=== PATIENT | female | born 1995 | race Caucasian/White ===

== ENCOUNTER 2018-10-14 01:53 | Inpatient (IN) ==
[2018-10-14] MEDS ORDERED: 0.9 % Sodium Chloride 1,000 ML IVC ONE (02:15)
--- NOTE | 2018-10-14 02:20 | Emergency Department Note ---
Disposition Clinical Impression: Finger infection Disposition: Admitted As Inpatient Condition: Good Time of Disposition: 04:08 Extremity Problem HPI - General Chief complaint: ED Extremity Problem,Nontraumatic Stated complaint: infected finger Time Seen by Provider: 10/14/18 02:10 Source: patient Limitations: no limitations Nursing Notes Reviewed: Yes Vital Signs Reviewed: Yes - History of Present Illness HPI Narrative: 23-year-old right-hand dominant female presents with an apparent infected right little finger. She scribes one week ago he had started on his uatsdin other than that she denies any injury. She describes as progressively swelling and worsening. She denies any previous skin infections, injury trauma fevers chills. Pain Scale: 7 - Related Data Allergies Allergy/AdvReac Type Severity Reaction Status Date / Time vancomycin AdvReac Redness of Verified 10/14/18 18:05 Skin All systems ED: reviewed and negative except as stated. Review of Systems: As Per HPI Constitutional: Denies: fever, chills ENT ED: Denies: throat pain Cardiovascular: Denies: chest pain Respiratory: Denies: cough Gastrointestinal: Denies: abdominal pain, nausea, vomiting Musculoskeletal: Reports: as per HPI Integumentary: Reports: as per HPI Neurological: Denies: headache Psychiatric: Reports: anxiety. Denies: depression, suicidal thoughts Hematological/Lymphatic: Denies: lymphadenopathy Allergic/Immunologic: Denies: facial swelling Past Medical History - Past Medical History Medical history: Reports: no medical history - Social History Smoking Status: Never smoker Alcohol use: Reports: none Drug use: Reports: none Physical Exam - General Limitations: no limitations General appearance: alert, in no apparent distress, anxious - Head Head exam: atraumatic, normocephalic - Eye Eye exam: Present: EOMI - ENT ENT exam: mucous membranes moist - Neck Neck exam: Present: full ROM - Chest Chest inspection: Present: symmetric chest wall rise - Respiratory Respiratory exam: Absent: respiratory distress - Cardiovascular Cardiovascular exam: Present: normal rhythm, tachycardia - Expanded Upper Extremity Exam Forearm/Wrist exam: Present: normal inspection, full ROM. Absent: tenderness Hand exam: Present: tenderness (right middle finger), swelling (right middle finger). Absent: full ROM (right middle finger: mild flexion, with limited extension) Vascular exam: Normal: capillary refill - Back Exam Back exam: Present: full ROM. Absent: CVA tenderness (R), CVA tenderness (L) - Neurological Exam Neurological exam: Present: alert - Psychiatric Psychiatric exam: Present: normal affect, normal mood - Skin Skin exam: Present: warm, dry, intact, normal color. Absent: rash, cyanosis, diaphoresis Course Course Narrative: 23-year-old right-hand dominant female presents with an apparent infected right little finger. She scribes one week ago he had started on his uatsdin other than that she denies any injury. She describes as progressively swelling and worsening. She denies any previous skin infections, injury trauma fevers chills. Patient arrives via squad. On my examination exam room she is very anxious and tearful. Nursing is at bedside attempting to draw blood. Her right index f golden does appear to be infected, there is some granulation tissue in the distal end, but noted circumferential swelling and erythema with apparent decreased range of motion of right middle finger. On visual inspection concerning for tenosynovitis. Patient denies any previous skin infections IV drug use. She does appear tachycardic I suspect due to infectious cause and anxiety. She denies any chest pain shortness of breath. We will proceed with imaging, abx, workup. I anticipate admission. - Reevaluation(s) Reevaluation #1: Patient was discussed with hospitalist Dr. Foster who agreed to accept patient. Pt was seen by ortho in ED and was taken to surgery from the ED. Time: 04:05 - Consultations Consultation #1: Patient was discussed with on-call orthopedic provider Dr. Pryor, who also had face time with patient and had reviewed radiographs on the portable x-ray machine. He advises for admission to the hospitalist, and we will plan for surgery tomorrow. Time: 03:00 Vital Signs Temperature 98.9 F 10/14/18 01:59 Pulse Rate 137 10/14/18 01:59 Respiratory Rate 20 10/14/18 01:59 Blood Pressure 139/90 10/14/18 01:59 O2 Sat by Pulse Oximetry 99 10/14/18 01:59 Temperature 98.4 F 10/14/18 06:00 Pulse Rate 96 10/14/18 06:00 Respiratory Rate 14 10/14/18 06:00 Blood Pressure 114/71 10/14/18 06:00 O2 Sat by Pulse Oximetry 96 10/14/18 06:00 Oxygen Delivery Oxygen Delivery Room Air Extremity Problem, Nontraumati - MDM Narrative Medical decision making narrative: Hand X-Ray 10/14/18 02:16 IMPRESSION: Marked soft tissue swelling and irregularity about the 3rd digit. Correlate for possible cellulitis. Mild irregularity of the distal tuft of the 3rd distal phalanx could relate to bony injury or early osteomyelitis in the appropriate clinical setting. D/ / Yuri Sessions / Yuri Sessions Interpreting Provider: Yuri Sessions Laboratory Tests 10/14/18 10/14/18 10/14/18 02:15 02:16 03:00 WBC 13.7 H RBC 4.56 Hgb 11.7 Hct 36.8 MCV 80.7 L MCH 25.7 L MCHC 31.8 RDW 14.6 H Plt Count 299 MPV 10.8 Immature Gran % 0.4 Seg Neutrophils % 75.2 Lymphocytes % 13.2 Monocytes % 8.1 Eosinophils % 2.4 Basophils % 0.7 Neutrophils # 10.3 H Lymphocytes # 1.8 Monocytes # 1.1 Eosinophils # 0.3 Basophils # 0.1 ESR Sodium 136 Potassium 3.5 Chloride 100 Carbon Dioxide 26 BUN 9 Creatinine 0.80 Est GFR ( Amer) > 60 Est GFR (Non-Af Amer) > 60 BUN/Creatinine Ratio 11 Glucose 99 Calculated Osmolality 281 Lactic Acid Calcium 9.3 C-Reactive Protein 56 H Serum , Qual 10/14/18 10/14/18 10/14/18 03:00 03:00 03:00 WBC RBC Hgb Hct MCV MCH MCHC RDW Plt Count MPV Immature Gran % Seg Neutrophils % Lymphocytes % Monocytes % Eosinophils % Basophils % Neutrophils # Lymphocytes # Monocytes # Eosinophils # Basophils # ESR 89 H Sodium Potassium Chloride Carbon Dioxide BUN Creatinine Est GFR ( Amer) Est GFR (Non-Af Amer) BUN/Creatinine Ratio Glucose Calculated Osmolality Lactic Acid 0.9 Calcium C-Reactive Protein Serum , Qual Negative - Lab Data Lab results reviewed: Yes I reviewed the patient's lab results. Result diagrams: 10/14/18 11:41 10/14/18 03:00 Lab Results 10/14/18 10/14/18 10/14/18 Range/Units 02:15 02:16 03:00 WBC 13.7 H (4.3-11.1) K/mcL RBC 4.56 (3.82-4.97) M/mcL Hgb 11.7 (11.5-15.4) g/dL Hct 36.8 (35.3-44.9) % MCV 80.7 L (83.0-100.0) fL MCH 25.7 L (28.0-33.3) pg MCHC 31.8 (31.6-35.5) g/dL RDW 14.6 H (11.5-14.5) % Plt Count 299 (140-400) K/mcL MPV 10.8 (9.4-12.4) fL Immature Gran % 0.4 (0-4) % Seg Neutrophils % 75.2 % Lymphocytes % 13.2 % Monocytes % 8.1 % Eosinophils % 2.4 % Basophils % 0.7 % Neutrophils # 10.3 H (1.6-8.9) K/mcL Lymphocytes # 1.8 (0.6-4.6) K/mcL Monocytes # 1.1 (0.0-1.3) K/mcL Eosinophils # 0.3 (0.0-0.6) K/mcL Basophils # 0.1 (0.0-0.2) K/mcL ESR (0-15) mm/hr Sodium 136 (136-145) mEq/L Potassium 3.5 (3.5-5.1) mEq/L Chloride 100 (98-107) mEq/L Carbon Dioxide 26 (23-29) mEq/L BUN 9 (6-20) mg/dL Creatinine 0.80 (0.60-1.20) mg/dL Est GFR ( Amer) > 60 (> 60) Est GFR (Non-Af Amer) > 60 (> 60) BUN/Creatinine Ratio 11 (6-26) Glucose 99 (70-105) mg/dL Calculated Osmolality 281 (280-300) Lactic Acid (0.5-2.2) mmol/L Calcium 9.3 (8.6-10.3) mg/dL C-Reactive Protein 56 H (Less than 10) mg/L Serum , Qual (Negative) 10/14/18 10/14/18 10/14/18 Range/Units 03:00 03:00 03:00 WBC (4.3-11.1) K/mcL RBC (3.82-4.97) M/mcL Hgb (11.5-15.4) g/dL Hct (35.3-44.9) % MCV (83.0-100.0) fL MCH (28.0-33.3) pg MCHC (31.6-35.5) g/dL RDW (11.5-14.5) % Plt Count (140-400) K/mcL MPV (9.4-12.4) fL Immature Gran % (0-4) % Seg Neutrophils % % Lymphocytes % % Monocytes % % Eosinophils % % Basophils % % Neutrophils # (1.6-8.9) K/mcL Lymphocytes # (0.6-4.6) K/mcL Monocytes # (0.0-1.3) K/mcL Eosinophils # (0.0-0.6) K/mcL Basophils # (0.0-0.2) K/mcL ESR 89 H (0-15) mm/hr Sodium (136-145) mEq/L Potassium (3.5-5.1) mEq/L Chloride (98-107) mEq/L Carbon Dioxide (23-29) mEq/L BUN (6-20) mg/dL Creatinine (0.60-1.20) mg/dL Est GFR ( Amer) (> 60) Est GFR (Non-Af Amer) (> 60) BUN/Creatinine Ratio (6-26) Glucose (70-105) mg/dL Calculated Osmolality (280-300) Lactic Acid 0.9 (0.5-2.2) mmol/L Calcium (8.6-10.3) mg/dL C-Reactive Protein (Less than 10) mg/L Serum , Qual Negative (Negative) Critical Care Time Critical Care Time: Yes Total Critical Care Time: 35 Attestation: Acute infection to the right middle finger with a threat to right upper extremity and bacteremia Attestation Statement - Attestation Attestation: Dr. Denney note: Patient was seen in conjunction with mid-level provider Selvin Coleman; please see his charting for complete documentation. I spent [id number] time with the patient and I agree with the patient's treatment and disposition. Right middle finger infection for 7-10 days which has been progressive now erythema spreads to the PIP joint and pain radiating into the right elbow to right axillary region. Fever and tachycardia today. Patient was evaluated by the hand surgeon Dr. Gonzalez in the emergency room bed 22 and taken to the operating room. Patient was given fluids, pain control and emergent antibiotics and emergent surgical care. Critical care time due to the severity of infection and this being an emergent threat to the patient's right upper extremity.
[2018-10-14] MEDS ORDERED: *HR* FentaNYL (PF) 100 MCG/2 ML VIAL IVP ONE (02:30)
[2018-10-14] MEDS ORDERED: Piperacillin/Tazobactam 3.375 GM in 0.9 % Sodium Chloride Mini Bag 100 ML IVPB ONE (02:32)
[2018-10-14] MEDS ORDERED: *HR* HYDROmorphone (PF) 1 MG/ML SYRINGE IVP ONE (02:35)
--- NOTE | 2018-10-14 03:26 | Orthopedic Consult Note ---
Date of Encounter: 10/14/18 Time of Encounter: 03:23 Assessment and Plan (1) Finger infection Current Visit: Yes Status: Acute I did have a long discussion with the patient regarding the diagnosis. She does have a significant right long finger infection likely a felon/paronychial abscess but also possibly flexor tenosynovitis. She is tachycardic which could be a combination of both her anxiety and infection. My recommendation is for exploration of the right long finger with debridement and irrigation. The risks discussed included but were not limited to stiffness, bleeding, infection, blood clots, damage to neurovascular structures, tendons, ligaments, and bone. Also discussed was the risk of continued symptoms and possible need for further procedures. I did discuss the anesthesia risks including stroke, heart attack, and . I did discuss the reasonable, foreseeable postoperative course with the patient. The patient did wish to proceed and consent was obtained. I have reviewed each of the pertinent components of this chart and any other pertinent medical component(s) including but not limited to pertinent application of the chief complaint, history of present illness, current medication, medical history, allergies, family history, medical history, surgical history, social history, review of systems, vital signs, and any other portion of the pertinent patient medical record directly or indirectly involved with this patient care that is pertinent based on my medical decision process. CHERELLE Vines History of Present Illness HPI: Ms. Funes is a 23 year old female who presented to the emergency department due to an infection of the right long finger. She said it started about a week ago when it began as a pustule on the radial aspect of the distal long finger. She also had one on her forehead which spontaneously drained and is improving. Apparently her significant other's daughter similarly had one on her finger which had ruptured and healed uneventfully. Regarding the patient, her right long finger worsened over the course of the last week and developed into a significant infection involving the entire fingertip up to the distal interphalangeal joint with erythema extending more proximally. She complains of sharp and achy pain localized to the right long fingertip, worse with any use or movement and better with rest. She denies any significant numbness or other signs or symptoms or other modifying factors. She denies any feelings of illness. She is quite anxious. Past Med Surg Social Fam HX - Past Medical History Medical history: no medical history - Social History Smoking Status: Never smoker Alcohol use: none Drug use: none Medications and Allergies Allergy/AdvReac Type Severity Reaction Status Date / Time No Known Allergies Allergy Verified 10/14/18 02:03 All Systems Reviewed: Constitutional -The patient denies any fevers, chills, or feelings of illness Neurologic -The patient denies any numbness, tingling, or burning pains Physical Exam - Constitutional Vitals: Temp Pulse Resp BP Pulse Ox 98.9 F 137 20 139/90 99 10/14/18 01:59 10/14/18 01:59 10/14/18 01:59 10/14/18 01:59 10/14/18 01:59 CONSTITUTIONAL -Vitals reviewed -The patient is well developed, well nourished, well groomed PSYCHIATRIC -Fully alert and oriented -The patient is quite anxious RIGHT UPPER EXTREMITY Inspection shows diffuse swelling of the right long finger with traumatic swelling at the fingertip. There are areas of ulceration, particularly on the radial aspect of the distal portion of the digit which is emanating purulent material. There is granulation tissue in this area as well. She does hold the finger in a slightly flexed position and has any pain with motion of the digit. The finger is diffusely tender. She is able to grossly flex and extend the other digits without issue. No redness in the palm of the hand. The fingertips are all grossly sensate and well-perfused, and the radial artery pulse is 2+. Labs are pending. Diagnostic Imaging: I did personally review and interpret x-rays of the right hand/long finger show diffuse swelling of the long finger from a soft tissue standpoint though there does not appear to be any significant bony involvement. Results - Labs Labs: All other labs normal. Consult Discharge Plan - Plan
[2018-10-14] MEDS ORDERED: *HR* FentaNYL (PF) 100 MCG/2 ML VIAL ONE (03:51)
[2018-10-14] MEDS ORDERED: *HR* Propofol 200 MG/20 ML VIAL IVP ONE (03:51)
[2018-10-14] MEDS ORDERED: Lidocaine -MPF 2% 2 ML VIAL ONE (03:52)
--- NOTE | 2018-10-14 04:01 | Anesthesia Evaluation PreOp ---
Date of Encounter: 10/14/18 Time of Encounter: 03:59 - Past History Planned Operation: RIGHT LONG FINGER I&D Cardiac History: Denies any Significant Hx Pulmonary History: Denies Any Significant HX DIRECTOR OF DIRECT MARKETING History: Denies Any Significant HX Other Medical History: Other (OBESITY) : No Test: Negative Alcohol Use: none Drug use: none Medications and Allergies Allergy/AdvReac Type Severity Reaction Status Date / Time No Known Allergies Allergy Verified 10/14/18 02:03 - Meds/Allergy Pre-op Review Medications Reviewed: Yes Allergies Reviewed: Yes Anesthesia Results - Labs 10/14/18 02:15 Anesthesia Exam Vital Signs/O2 Sat, Most Current Temp Pulse Resp BP Pulse Ox 98.9 F 137 20 139/90 99 10/14/18 01:59 10/14/18 01:59 10/14/18 01:59 10/14/18 01:59 10/14/18 01:59 Weight: 136 KG - BMI 47 NPO (# of Hours): > 2300 - HEENT Mallampati: I Teeth: Normal - Cardiac Rhythm: Regular - Pulmonary Breath Sounds: bilateral Clear Anesthesia Assess/Plan ASA Score: 2, E Anesthetic Plan: General Monitoring Plan: Standard Monitors Recovery Plan: PACU
[2018-10-14 04:04] LABS: Basophils # 0.1 K/mcL (0.0-0.2); Basophils % 0.7 %; Eosinophils # 0.3 K/mcL (0.0-0.6); Eosinophils % 2.4 %; Hematocrit 36.8 % (35.3-44.9); Hemoglobin 11.7 g/dL (11.5-15.4); Immature Granulocytes % 0.4 % (0-4); Lymphocytes # 1.8 K/mcL (0.6-4.6); Lymphocytes % 13.2 %; Mean Corpuscular HGB Conc 31.8 g/dL (31.6-35.5); Mean Corpuscular Hemoglobin 25.7 pg (28.0-33.3); Mean Corpuscular Volume 80.7 fL (83.0-100.0); Mean Platelet Volume 10.8 fL (9.4-12.4); Monocytes # 1.1 K/mcL (0.0-1.3); Monocytes % 8.1 %; Neutrophils # 10.3 K/mcL (1.6-8.9); Platelet Count 299 K/mcL (140-400); Red Blood Count 4.56 M/mcL (3.82-4.97); Red Cell Distribution Width 14.6 % (11.5-14.5); Segmented Neutrophils % 75.2 %
[2018-10-14] MEDS ORDERED: *HR* HYDROmorphone (PF) 1 MG/ML SYRINGE IVP PRN ×2 (04:13→08:06)
[2018-10-14] MEDS ORDERED: *HR* OxyCODONE Immed Rel 5 MG TABLET PO PRN (04:13)
[2018-10-14] MEDS ORDERED: Ondansetron 4 MG/2 ML VIAL IVP ONE ×2 (04:13→08:06)
[2018-10-14] MEDS ORDERED: *HR* Promethazine 25 MG/ML VIAL IVP PRN ×2 (04:13→08:06)
[2018-10-14] MEDS ORDERED: Ondansetron 4 MG/2 ML VIAL ONE (04:47)
[2018-10-14] MEDS ORDERED: Ketorolac 30 MG/ML VIAL ONE (05:00)
--- NOTE | 2018-10-14 05:05 | Orthopedic Operative Note ---
Date of procedure: 10/14/18 Procedure: OPERATIVE REPORT SURGEON: Mike Pryor MD PREOPERATIVE DIAGNOSIS: Right long finger infection POSTOPERATIVE DIAGNOSIS: Right long finger infection PROCEDURE: Incision, drainage, irrigation, and debridement of the right long finger including skin, subcutaneous tissue, and bone ANESTHESIA: Gen. anesthesia SPECIMENS: Right long finger distal phalanx for biopsy and swabs for culture as well as a soft tissue culture PREOPERATIVE NOTE The surgical plan was reviewed with the patient. The risks, benefits, alternatives, and potential complications of this procedure were discussed with the patient including injury to veins, arteries, nerves, tendons, ligaments, and bone. Also discussed were the risks of infection, bleeding, pain, blood clots, the possible need for a blood transfusion, the possible need for further procedures, heart attack, stroke, and . Additional risks include continued symptoms and the need for further debridement. All of this was explained in simple terms, and the patient verbalized understanding and wished to proceed. Consent was given to proceed with surgery. PROCEDURE: The patient was seen in the preoperative holding area where the identify and the consent were confirmed. The right long finger was marked. Final questions were answered. The patient was brought back to the operating room and placed supine on the operating room table. A huddle was performed with the patient and all vital surgical team members confirming patient identity, the correct procedure, and the correct operative site. Gen. anesthesia was administered. The operative extremity was prepped and draped in the usual sterile fashion. A surgical time out was performed immediately preceding the incision with all personnel in the operating room to confirm patient identity, the correct operative site and extremity, correct radiographic studies, availability of appropriate surgical equipment, and agreement on the planned procedure. The tourniquet was inflated without examination. A Alberta incision was made from the proximal interphalangeal joint distally to the tip of the digit and a full-thickness flap was elevated. There is extensive purulence within the volar pad of the digit with an extensive amount of necrotic fat which was sharply debrided. The neurovascular bundles were protected. The flexor tendon sheath was identified and there was no purulence within. The distal phalanx was identified and a small amount of bone was taken for biopsy. The nail plate was removed and there is no purulence underneath the nail plate. The wound was flushed with 3 L of saline. After the debridement was complete all tissue looked healthy. The proximal portion of the Alberta was closed loosely with 3 interrupted nylon stitches. The distal portion was open with a 1.5 cm x 1.5 cm area of full-thickness loss as a result of the infection. This was packed open with quarter-inch iodoform packing. A soft, sterile dressing was applied. The instrument, sponge, and needle counts were correct after wound closure. POST OPERATIVE PLAN: We will do local wound care and allow for granulation of the wound. We will keep on IV antibiotics and follow the cultures. Was there an server service assistant present: No Estimated blood loss (cc): 5
--- NOTE | 2018-10-14 05:18 | Anesthesia Evaluation Post Op ---
Date of Encounter: 10/14/18 Time of Encounter: 05:45 - Discharge PostOp Status: Transfer Patient to floor (Patient's vital signs have been reviewed. Patient is stable postoperatively and has adequately recovered from anesthesia. Patient is determined to have stable airway patency and respiratory function including respiratory rate and oxygen saturation. Patient has a stable heart rate, blood pressure and adequate hydration. Patients mental status is acceptable. Patients temperature is appropriate. Pain and nausea are adequately controlled.)
[2018-10-14 05:21] LABS: BUN/Creatinine Ratio 11 (6-26); Blood Urea Nitrogen 9 mg/dL (6-20); Calcium 9.3 mg/dL (8.6-10.3); Carbon Dioxide 26 mEq/L (23-29); Chloride 100 mEq/L (98-107); Glucose 99 mg/dL (70-105); Osmolality,Calculated 281 (280-300); Potassium 3.5 mEq/L (3.5-5.1); Sodium 136 mEq/L (136-145); eGFR For Non-African Americans > 60 (> 60)
[2018-10-14] MEDS ORDERED: Piperacillin/Tazobactam 3.375 GM in 0.9 % Sodium Chloride Mini Bag 100 ML IVPB SCH (09:00)
[2018-10-14] MEDS ORDERED: Naloxone 0.4 MG/ML INJ IVP PRN (10:29)
--- NOTE | 2018-10-14 10:29 | Internal Med History&Physical ---
Date of Encounter: 10/14/18 Time of Encounter: 07:00 Internal Medicine - H&P: HPI Chief complaint: erythema tenderness of the right little finger History of present illness: 23-year-old right-hand dominant female presents with s swelling and erythema of the right little finger. she denies any trauma to her hand fever or chills. On exam the patient had swelling of the little finger was decreased range of motion, given that the patient is a [id number] surgery was consulted and patient was taken to the OR for further evaluation and management. Reviewing surgery report stated that the patient status post post Incision, drainage, irrigation, and debridement of the right long finger including skin, subcutaneous tissue, and bone. Past Med Surg Social Fam HX - Past Medical History Medical history: no medical history Psychiatric history: anxiety, depression - Social History Smoking Status: Never smoker Alcohol use: none Drug use: none - Family History Mother Living Status: Still Living Hx Family Cardiac Disorders: Yes (HTN) Hx Family Endocrine Disorder: Yes (DM) Father History Unknown: Yes Internal Medicine - H&P: Meds No Known Home Drugs 10/15/18 [History] Allergy/AdvReac Type Severity Reaction Status Date / Time vancomycin AdvReac See Verified 10/15/18 10:29 Comments All Systems PM: A 10-system review of systems was performed and is negative for pertinent findings except as documented above in the HPI. - Constitutional Vitals: Temp Pulse Resp BP Pulse Ox 98.4 F 90 14 121/76 97 10/14/18 07:15 10/14/18 07:15 10/14/18 07:15 10/14/18 07:15 10/14/18 07:15 Exam: As below - Head Head exam: Present: atraumatic, normocephalic - Eye Eye exam: Present: PERRL, conjuntiva pink, sclera anicteric Pupils: Present: PERRL - Neck Neck exam general surgery: Present: supple, trachea midline. Absent: lymphadenopathy - Respiratory Respiratory exam: Present: CTAB. Absent: accessory muscle use, rales, rhonchi, wheezes - Cardiovascular Cardiovascular exam: Present: RRR, +S1, +S2. Absent: diastolic murmur, gallop, rubs, systolic murmur - GI/Abdominal GI/Abdominal exam: Present: normal bowel sounds, soft, no peritoneal signs. Absent: distended, tenderness - Extremities Exam Extremities exam: Present: warm, radial pulses palpable and symmetrical. Absent: calf tenderness, cyanotic, pedal edema - Neurological Exam Neurological exam: Present: CN II-XII intact, oriented X3, no focal deficits. Absent: pronater drift, facial droop, speech deficit - Skin Skin exam: Present: dry, intact Internal Med - H&P Results - Labs CBC & Chem 7: 10/18/18 03:00 10/18/18 03:00 Labs: Short CBC 10/14/18 Range/Units 02:15 WBC 13.7 H (4.3-11.1) K/mcL Hgb 11.7 (11.5-15.4) g/dL Hct 36.8 (35.3-44.9) % Plt Count 299 (140-400) K/mcL Neutrophils # 10.3 H (1.6-8.9) K/mcL BMP 10/14/18 03:00 Sodium 136 Potassium 3.5 Chloride 100 Carbon Dioxide 26 BUN 9 Creatinine 0.80 Glucose 99 Calcium 9.3 - Impressions ITS Impressions Hand X-Ray 10/14/18 02:16 IMPRESSION: Marked soft tissue swelling and irregularity about the 3rd digit. Correlate for possible cellulitis. Mild irregularity of the distal tuft of the 3rd distal phalanx could relate to bony injury or early osteomyelitis in the appropriate clinical setting. D/ / Yuri Sessions / Yuri Sessions Interpreting Provider: Yuri Sepulveda - Assessment and Plan (1) Finger infection Status: Acute Assessment and plan: The patient was taken from the ER to the ER , she is status post Incision, drainage, irrigation, and debridement of the right long finger including skin, subcutaneous tissue, and bone. we will continue antibiotics coverage, surgery will be following for further evaluation and management. (2) DVT prophylaxis Status: Acute Assessment and plan: the patient is ambulatory. - Time Spent With Patient Total time spent is greater than 50% in coordination of care (as documented) at patient's floor/unit and/or counseling patient:
[2018-10-14 12:05] LABS: Basophils # 0.1 K/mcL (0.0-0.2); Basophils % 0.5 %; Eosinophils # 0.4 K/mcL (0.0-0.6); Eosinophils % 3.4 %; Hematocrit 32.1 % (35.3-44.9); Hemoglobin 10.3 g/dL (11.5-15.4); Immature Granulocytes % 0.3 % (0-4); Lymphocytes % 17.5 %; Mean Corpuscular HGB Conc 32.1 g/dL (31.6-35.5); Mean Corpuscular Hemoglobin 25.9 pg (28.0-33.3); Mean Corpuscular Volume 80.9 fL (83.0-100.0); Monocytes % 8.5 %; Neutrophils # 8.1 K/mcL (1.6-8.9); Platelet Count 238 K/mcL (140-400); Red Blood Count 3.97 M/mcL (3.82-4.97); Red Cell Distribution Width 14.7 % (11.5-14.5); Segmented Neutrophils % 69.8 %
[2018-10-14] MEDS: *HR* OxyCODONE Immed Rel 5 MG TABLET PO PRN ×2 (12:38→19:47)
[2018-10-14] MEDS: Piperacillin/Tazobactam 3.375 GM in 0.9 % Sodium Chloride Mini Bag 100 ML IVPB SCH ×2 (12:40→20:06)
[2018-10-14] MEDS ORDERED: Famotidine 20 MG/2 ML VIAL IVP ONE (18:06)
--- NOTE | 2018-10-14 19:31 | Orthopedics Progress Note ---
Date of Encounter: 10/14/18 Time of Encounter: 19:28 - Assessment and Plan (1) Finger infection Current Visit: Yes Status: Acute Subjective Interval history: S: Expected pain of the right long finger No new injuries or complaints O: Afebrile on the vital signs are stable Dressing is changed Mild improvement in the redness of the right long finger Generalized swelling without significant change compared to yesterday The packing is pulled and the wound bed is healthy without any further purulence She can grossly flex and extend the digit with significant limitation due to pain inhibition Other digits are freely mobile, sensory, and well-perfused A: Right long finger infection post I&D P: Radiologist's read on the x-ray noted, likely osteomyelitis; Bone biopsy and deep cultures pending Recommend wet-to-dry dressing changes I did discuss with the patient at great length that this is an attempt to save the digit, however she is at significant risk of losing at least part of the digit depending on how well the wound granulates and the clinical course of infection. Continue IV antibiotics for now, broad-spectrum until cultures delineate Objective Vital signs: Vital Signs Temp Pulse Resp BP Pulse Ox 10/14/18 14:34 98.3 F 93 20 109/72 98 10/14/18 10:15 98.2 F 89 16 115/77 98 10/14/18 09:15 98.3 F 89 16 138/80 97 10/14/18 08:15 97.7 F 99 16 119/71 98 10/14/18 07:15 98.4 F 90 14 121/76 97 10/14/18 06:45 97.8 F 89 14 129/77 94 10/14/18 06:00 98.4 F 96 14 114/71 96 10/14/18 05:56 96 16 132/57 93 10/14/18 05:41 99.1 F 98 16 127/74 93 10/14/18 05:31 98 18 133/81 92 10/14/18 05:21 99.4 F 110 18 132/75 95 10/14/18 05:11 99.4 F 117 18 129/59 96 10/14/18 04:01 113 20 133/63 95 10/14/18 01:59 98.9 F 137 20 139/90 99 Intake and Output 10/14/18 10/14/18 10/14/18 07:59 15:59 23:59 Intake Total 240 / 440 200 / 440 Output Total 5 / 305 300 / 305 Balance -5 / 135 240 / 135 -100 / 135 Intake: IV Fluids 100 / 100 Zosyn 3.375 GM In 0.9 % Sodium 100 / 100 Chloride (Mini-Bag +) 100 ML @ 25 mls/hr IVPB Q8H [facility] Rx#: [id number] Oral 240 / 340 100 / 340 Output: Urine 300 / 300 Estimated Blood Loss Other: Meal Breakfast Dinner Percent of Meal Consumed 85% 75% Weight 136.078 kg Patient Weight 10/14/18 23:59 Weight 136.078 kg - Labs CBC & BMP: 10/14/18 11:41 10/14/18 03:00 Labs: Abnormal lab results WBC 11.6 K/mcL (4.3-11.1) H 10/14/18 11:41 Hgb 10.3 g/dL (11.5-15.4) L 10/14/18 11:41 Hct 32.1 % (35.3-44.9) L 10/14/18 11:41 MCV 80.9 fL (83.0-100.0) L 10/14/18 11:41 MCH 25.9 pg (28.0-33.3) L 10/14/18 11:41 RDW 14.7 % (11.5-14.5) H 10/14/18 11:41 10.3 K/mcL (1.6-8.9) H 10/14/18 02:15 ESR 89 mm/hr (0-15) H 10/14/18 03:00 56 mg/L (Less than 10) H 10/14/18 02:16 Consult Discharge Plan - Plan Referrals: NONE,PCP [Primary Care Provider] -
[2018-10-15] MEDS: *HR* OxyCODONE Immed Rel 5 MG TABLET PO PRN ×4 (03:22→22:19)
[2018-10-15] MEDS: Piperacillin/Tazobactam 3.375 GM in 0.9 % Sodium Chloride Mini Bag 100 ML IVPB SCH ×3 (03:41→20:29)
--- NOTE | 2018-10-15 07:44 | Internal Med Progress Note ---
Hospitalist Progress Note - Encounter Date of Encounter: 10/15/18 Time of Encounter: 11:00 - Subjective Interval History: Patient status post incision and drainage of right long finger;cultures pending - Exam Vitals: Temp Pulse Resp BP Pulse Ox 98.8 F 88 17 132/85 96 10/15/18 06:50 10/15/18 06:50 10/15/18 06:50 10/15/18 06:50 10/15/18 06:50 Exam: Gen.: Nonacute distress, alert and oriented 3 ENT: Mucosal membranes moist Respiratory: Lungs are clear to auscultation bilaterally without any wheezing rhonchi or rales Cardiovascular: Normal S1 and S2 regular rate rhythm no murmurs rubs or gallops Abdomen: Soft, nontender and nondistended with positive bowel sounds Extremities: No lower extremity edema Skin: Normal colorses - Assessment and Plan (1) Finger infection Current Visit: Yes Status: Acute Assessment and Plan: X-ray of right hand showed markedly soft swelling/irregularity about the third digit with concerns for early osteomyelitis. Orthopedics was consulted with recommendations for incision and drainage Patient now status post incision and drainage of proximal interphalangeal joint distally to the tip of the digit which revealed extensive purulence within the volar pad of the digit with an extensive amount of necrotic fat which was sharply debrided; cultures pending Will continue IV vancomycin and IV Zosyn (2) Mood disorder Current Visit: Yes Status: Acute Assessment and Plan: Patient very tearful during exam but denies suicidal ideation. Cardiology consulted for evaluation and recommendations. DVT Prophylaxis: patient is ambulatory. - Time Spent with Patient Total time spent is greater than 50% in coordination of care (as documented) at patient's floor/unit and/or counseling patient: Internal Medicine: Result - Labs CBC & Chem 7: 10/14/18 11:41 10/14/18 03:00 Labs: Short CBC 10/14/18 Range/Units 11:41 WBC 11.6 H (4.3-11.1) K/mcL Hgb 10.3 L (11.5-15.4) g/dL Hct 32.1 L (35.3-44.9) % Plt Count 238 (140-400) K/mcL Neutrophils # 8.1 (1.6-8.9) K/mcL Consult Discharge Plan - Plan Referrals: NONE,PCP [Primary Care Provider] -
[2018-10-15] MEDS: hydrOXYzine pamoate 25 MG CAPSULE PO PRN ×2 (15:13→23:47)
[2018-10-15] MEDS ORDERED: clonazePAM 0.5 MG TABLET PO ONE (17:21)
--- NOTE | 2018-10-15 19:08 | Orthopedics Progress Note ---
Date of Encounter: 10/15/18 Time of Encounter: 19:07 - Assessment and Plan (1) Finger infection Current Visit: Yes Status: Acute Subjective Interval history: S: Expected pain of the right long finger No new injuries or complaints O: Afebrile on the vital signs are stable Dressing is changed Mild improvement in the redness of the right long finger Generalized swelling without significant change compared to yesterday The packing is pulled and the wound bed is healthy without any further purulence She can grossly flex and extend the digit with significant limitation due to pain inhibition Other digits are freely mobile, sensory, and well-perfused Cultures showing gram positive cocci A: Right long finger infection post I&D P: Continued wet to dry changes Continue IV antibiotics for now, broad-spectrum until cultures delineate Follow up bone biopsy results Objective Vital signs: Vital Signs Temp Pulse Resp BP Pulse Ox 10/15/18 17:25 98.7 F 84 16 131/78 97 10/15/18 10:45 98.5 F 87 16 111/75 95 10/15/18 06:50 98.8 F 88 17 132/85 96 10/15/18 03:46 98.8 F 81 16 111/75 97 10/14/18 19:32 98.8 F 101 17 111/71 97 Intake and Output 10/15/18 10/15/18 10/15/18 07:59 15:59 23:59 Intake Total 700 / 700 Balance 700 / 700 Intake: IV Fluids 700 / 700 Zosyn 3.375 GM In 0.9 % Sodium 200 / 200 Chloride (Mini-Bag +) 100 ML @ 25 mls/hr IVPB Q8H [facility] Rx#: [id number] Vancocin 2,000 MG In 0.9 % 500 / 500 Sodium Chloride 500 ML @ 125 mls/hr IVPB Q12H [facility] Rx#: [id number] - Labs CBC & BMP: 10/14/18 11:41 10/14/18 03:00 Labs: Abnormal lab results WBC 11.6 K/mcL (4.3-11.1) H 10/14/18 11:41 Hgb 10.3 g/dL (11.5-15.4) L 10/14/18 11:41 Hct 32.1 % (35.3-44.9) L 10/14/18 11:41 MCV 80.9 fL (83.0-100.0) L 10/14/18 11:41 MCH 25.9 pg (28.0-33.3) L 10/14/18 11:41 RDW 14.7 % (11.5-14.5) H 10/14/18 11:41 10.3 K/mcL (1.6-8.9) H 10/14/18 02:15 ESR 89 mm/hr (0-15) H 10/14/18 03:00 56 mg/L (Less than 10) H 10/14/18 02:16 Consult Discharge Plan - Plan Referrals: NONE,PCP [Primary Care Provider] -
--- NOTE | 2018-10-15 19:36 | Infectious Disease Consult ---
Infectious Disease-Consult - Encounter Date/Time Date of Encounter: 10/15/18 Time of Encounter: 19:34 - Data of Consult Patient: new to practice Reason for consult: infection of the right long finger Consult date: 10/15/18 Requesting Physician: Evangelist Robledo Primary Care Provider: PCP NONE - HPI HPI: Patient is a 23 year old woman with no PMH and not taking any medications presented with Right long finger infection for about 2 weeks prior to admission. Patient states the she first noted as a "pimple" patient then noted the pimple getting bigger and more swollen and with significant pain. Patient denied any fevers or chills. Since admission patient had sepsis criteria with leukocytosis and tachycardia. ESR was elevated. Xray of the R hand revealed cellulitis with possible early osteo. Patient was taken to surgery by Dr. Pryor and patient underwent Incision, drainage, irrigation, and debridement of the right long finger including skin, subcutaneous tissue, and bone. Intra op cultures growing GPC and pathology is pending. Patient was started on vancomycin and zosny. we are asked to evaluate the patient and make further recommendations. Patient currently laying in bed. Denies any complaints. she is very emotional and anxious and had multiple crying episodes. I asked if she is anxious and she said yes. No history of anxiety and depression. - ROS Review of Systems: 10 Point ROS done, negative other for what's mentioned in the HPI - Results CBC & Chem 7: 10/15/18 20:27 10/16/18 08:47 - Exam Vitals: Temp Pulse Resp BP Pulse Ox 98.7 F 84 16 131/78 97 10/15/18 17:25 10/15/18 17:25 10/15/18 17:25 10/15/18 17:25 10/15/18 17:25 Exam: GENERAL: Comfortable. Laying in bed NAD HEENT: [place], EOMI LUNGS: Good air sounds bilaterally, no wheezing or rhonchi CV: RRR, S1 S2 ABDOMEN: Soft, nontender, + bowel sounds EXT: right hand/arm surgically wrapped. NEURO: A&OX3; no focal deficit No Known Home Drugs 10/15/18 [History] Allergy/AdvReac Type Severity Reaction Status Date / Time vancomycin AdvReac See Verified 10/15/18 10:29 Comments - Assessment and Plan (1) Finger infection Current Visit: Yes Status: Acute Sx started around 10/02/18 causative organism GPC final ID pending pathology report pending s/p Incision, drainage, irrigation, and debridement of the right long finger including skin, subcutaneous tissue, and bone currently on vanc/zosyn SNOMED Code(s): 949069613 (2) Anxiety Current Visit: Yes Status: Acute patient with crying spells might benefit from anxiolytic will d/w Dr. Robledo SNOMED Code(s): 76669280 (3) Morbid obesity Current Visit: Yes Status: Acute SNOMED Code(s): 587554181 Past Med Surg Social Fam HX - Past Medical History Medical history: no medical history Psychiatric history: anxiety, depression - Social History Smoking Status: Never smoker Alcohol use: none Drug use: none - Family History Mother Living Status: Still Living Hx Family Cardiac Disorders: Yes (HTN) Hx Family Endocrine Disorder: Yes (DM) Father History Unknown: Yes Consult Discharge Plan - Plan Referrals: NONE,PCP [Primary Care Provider] -
[2018-10-15 21:23] LABS: Basophils # 0.1 K/mcL (0.0-0.2); Basophils % 0.5 %; Eosinophils # 0.6 K/mcL (0.0-0.6); Eosinophils % 4.7 %; Hematocrit 32.3 % (35.3-44.9); Hemoglobin 10.3 g/dL (11.5-15.4); Immature Granulocytes % 0.4 % (0-4); Lymphocytes # 1.6 K/mcL (0.6-4.6); Lymphocytes % 13.1 %; Mean Corpuscular HGB Conc 31.9 g/dL (31.6-35.5); Mean Corpuscular Hemoglobin 26.4 pg (28.0-33.3); Mean Corpuscular Volume 82.8 fL (83.0-100.0); Mean Platelet Volume 10.8 fL (9.4-12.4); Monocytes # 1.2 K/mcL (0.0-1.3); Monocytes % 9.7 %; Neutrophils # 8.9 K/mcL (1.6-8.9); Platelet Count 230 K/mcL (140-400); Segmented Neutrophils % 71.6 %
[2018-10-16] MEDS: Piperacillin/Tazobactam 3.375 GM in 0.9 % Sodium Chloride Mini Bag 100 ML IVPB SCH (04:00)
[2018-10-16] MEDS: *HR* OxyCODONE Immed Rel 5 MG TABLET PO PRN ×2 (04:04→10:25)
[2018-10-16 05:13] LABS: Bilirubin,Urine Negative (Negative); Blood,Urine Negative (Negative); Clarity,Urine Cloudy (Clear); Color,Urine Yellow (Yellow); Glucose,Urine (UA) Normal (Normal); Ketones,Urine Negative (Negative); Leukocyte Esterase,Urine Moderate (Negative); Nitrite,Urine Negative (Negative); Protein,Urine 100 mg/dL (Neg-Trace); Specific Gravity,Urine 1.011 (1.010-1.025); Urobilinogen,Urine Normal (Normal)
[2018-10-16 05:14] LABS: Bacteria,Urine None Seen per hpf (None-Few); Hyaline Casts,Urine None Seen per lpf (None-Few); RBC,Urine 0-3 per hpf (0-3); Squamous Epithelial Cell,Urine Many per lpf (None-Few); WBC,Urine 50-100 per hpf (0-3)
--- NOTE | 2018-10-16 07:23 | Orthopedics Progress Note ---
Date of Encounter: 10/16/18 Time of Encounter: 07:22 - Assessment and Plan (1) Finger infection Current Visit: Yes Status: Acute Subjective Interval history: S: Expected pain of the right long finger No new injuries or complaints O: Afebrile on the vital signs are stable Dressing is changed Mild improvement in the redness of the right long finger Generalized swelling without perhaps slightly improved compared to yesterday The packing is pulled and the wound bed is healthy without any further purulence She can grossly flex and extend the digit with significant limitation due to pain inhibition Other digits are freely mobile, sensory, and well-perfused Cultures showing gram positive cocci A: Right long finger infection post I&D P: Continued wet to dry changes and allow for granulation of the wound bed. Continue IV antibiotics for now, broad-spectrum until cultures delineate; ID onboard. Follow up bone biopsy results Objective Vital signs: Vital Signs Temp Pulse Resp BP Pulse Ox 10/16/18 04:23 97.8 F 85 16 123/80 97 10/15/18 20:17 98.9 F 85 15 133/80 98 10/15/18 17:25 98.7 F 84 16 131/78 97 10/15/18 10:45 98.5 F 87 16 111/75 95 Intake and Output 10/15/18 10/15/18 10/16/18 15:59 23:59 07:59 Intake Total 100 / 800 100 / 100 Output Total 300 / 300 Balance 100 / 800 -200 / -200 Intake: IV Fluids 100 / 800 100 / 100 Zosyn 3.375 GM In 0.9 % Sodium 100 / 300 100 / 100 Chloride (Mini-Bag +) 100 ML @ 25 mls/hr IVPB Q8H [facility] Rx#: [id number] Output: Urine 300 / 300 - Labs CBC & BMP: 10/15/18 20:27 10/14/18 03:00 Labs: Abnormal lab results WBC 12.4 K/mcL (4.3-11.1) H 10/15/18 20:27 Hgb 10.3 g/dL (11.5-15.4) L 10/15/18 20:27 Hct 32.3 % (35.3-44.9) L 10/15/18 20:27 MCV 82.8 fL (83.0-100.0) L 10/15/18 20:27 MCH 26.4 pg (28.0-33.3) L 10/15/18 20:27 RDW 15.0 % (11.5-14.5) H 10/15/18 20:27 10.3 K/mcL (1.6-8.9) H 10/14/18 02:15 ESR 89 mm/hr (0-15) H 10/14/18 03:00 56 mg/L (Less than 10) H 10/14/18 02:16 Cloudy (Clear) A 10/16/18 04:34 100 mg/dL (Neg-Trace) H 10/16/18 04:34 Ur Leukocyte Esterase Moderate (Negative) H 10/16/18 04:34 50-100 per hpf (0-3) H 10/16/18 04:34 Ur Squamous Epith Cells Many per lpf (None-Few) H 10/16/18 04:34 Ur Culture Indicated? YES (NO) A 10/16/18 04:34 Vancomycin Trough 74 mcg/mL (5-10) H 10/15/18 22:52 Consult Discharge Plan - Plan Referrals: NONE,PCP [Primary Care Provider] -
[2018-10-16] MEDS ORDERED: Aminoglycoside Consult 1 EACH MC ONE (08:02)
[2018-10-16] MEDS: hydrOXYzine pamoate 25 MG CAPSULE PO PRN (09:08)
[2018-10-16 09:44] LABS: Calcium 8.8 mg/dL (8.6-10.3); Potassium 4.3 mEq/L (3.5-5.1)
[2018-10-16] MEDS: 0.9 % Sodium Chloride 1,000 ML IVC SCH ×2 (11:34→19:43)
[2018-10-16 11:47] LABS: Bilirubin,Urine Negative (Negative); Blood,Urine Negative (Negative); Clarity,Urine Cloudy (Clear); Color,Urine Yellow (Yellow); Glucose,Urine (UA) Normal (Normal); Ketones,Urine Negative (Negative); Leukocyte Esterase,Urine Small (Negative); Nitrite,Urine Negative (Negative); Protein,Urine 100 mg/dL (Neg-Trace); Specific Gravity,Urine 1.012 (1.010-1.025); Urobilinogen,Urine Normal (Normal)
[2018-10-16 11:52] LABS: Bacteria,Urine None Seen per hpf (None-Few); Hyaline Casts,Urine None Seen per lpf (None-Few); Squamous Epithelial Cell,Urine Many per lpf (None-Few); WBC,Urine 15-30 per hpf (0-3)
--- NOTE | 2018-10-16 11:58 | Infectious Disease Progress No ---
ID Progress Note Date of Encounter: 10/16/18 Time of Encounter: 10:20 - Subjective Subjective: Patient seen and examined. No acute events noted overnight. Patient tearful during exam and states she feels overwhelmed. She complains of pain at the surgical site. Denies fevers, chills, rigors. Denies chest pain, shortness of breath, or cough. Denies nausea, vomiting, diarrhea, or constipation. She states she is unsure when her last bowel movement was. She states her appetite is not very good because she is very anxious. Denies oral thrush or skin rashes. - Objective CBC & Chem 7: 10/15/18 20:27 10/16/18 18:17 - Exam Vitals: Temp Pulse Resp BP Pulse Ox 98.9 F 82 18 104/77 98 10/16/18 10:40 10/16/18 10:40 10/16/18 10:40 10/16/18 10:40 10/16/18 10:40 Exam: Head: Atraumatic, normal inspection, normocephalic. Eye: EOMI, PERRLA, no scleral icterus noted. ENT: Mucous membranes moist. No odontogenic infection noted. Neck: Normal inspection, no meningismus. Respiratory: Clear to auscultation. No rales, respiratory distress, rhonchi, or wheezes noted. Cardiovascular: Regular rate and rhythm, S1 and S2 audible. No murmurs, rubs, or gallops. GI: Soft, obese, normal bowel sounds. Extremities:No joint swelling, pedal edema, or tenderness noted. Right hand dressing clean, dry, and intact. Back: Normal inspection. No vertebral tenderness noted. Neurological: Alert, oriented 3, no focal deficits. Psychiatric: normal affect, normal mood. Skin: Dry, intact, warm. Normal color. No rashes. - Assessment and Plan (1) Osteomyelitis of finger of right hand Current Visit: Yes Status: Acute Location: Right hand long finger. Etiology: Unclear. Causative organism: MRSA. X-ray showed findings consistent with early osteomyelitis. Ortho consulted.. Status post incision, drainage, irrigation, and debridement of the right long finger including skin, subcutaneous tissue, and bone. Intraoperative subcutaneous tissue cultures positive for MRSA. Bone pathology is pending. Discussed with Dr. Gonzalez who has a high index of suspicion that this is a true osteomyelitis. Currently on vancomycin and Zosyn. SNOMED Code(s): 08547565 (2) KRISTA (acute kidney injury) Current Visit: Yes Status: Acute Likely secondary to vancomycin toxicity. Serum creatinine 5 this morning. Recommend strict I's and O's. Recommend nephrology to evaluate. Hold Vancomycin, but continue to check levels. Will likely need to switch to other agent once levels are subtherapeutic. Dose-adjust medications and avoid additional nephrotoxins. SNOMED Code(s): 54640619, 96588055 (3) Accidental vancomycin overdose Current Visit: Yes Status: Acute Vanc trough 10/15/18 74. Etiology: Unclear. Discussed with Briana Pharm.D. who is going to look into it. Vancomycin currently on hold. Qualifiers: Encounter type: initial encounter Qualified Code(s): T36.8X1A - Poisoning by other systemic antibiotics, accidental (unintentional), initial encounter SNOMED Code(s): 652083620 (4) Anxiety Current Visit: Yes Status: Acute Currently on oral Vistaril which the patient states really is not helping. Psychiatry consulted. SNOMED Code(s): 81727498 (5) Morbid obesity Current Visit: Yes Status: Acute SNOMED Code(s): 786948356 - Recommendations Recommendations: Await blood cultures to finalize. Wound care and activity per the ortho team. Recommend nephrology to evaluate. Strict I's and O's. Discontinue Zosyn. Hold vancomycin, but continued to trend levels. We will likely need to switch to a alternative agent once levels are subtherapeutic. Duration of treatment depends on the clinical picture, likely 6 weeks of IV antibiotics. Monitor renal function closely and dose adjust medications. guest services assistant to assist with discharge planning. Avoid insertion of long-term IV access until final discharge plans are made. Consult Discharge Plan - Plan Referrals: NONE,PCP [Primary Care Provider] - - Attending Attestation I have personally performed a face to face evaluation on this patient. I have reviewed and agree with the care plan. History and Exam by me shows: Patient seen and examined. at bedside. Assessment and plan: Abscess of the right hand with MRSA Vancomycin toxicity Acute kidney injury Anxiety Recommendations Avoid nephrotoxic medication Hold and all antibiotics until vancomycin level is around 15 and then we will probably start the patient on daptomycin of her kidney improves Duration of treatment probably 2-4 weeks, might be able switched to oral antibiotics eventually Nephrology consult
[2018-10-16] MEDS ORDERED: 0.9 % Sodium Chloride 1,000 ML IVC ONE (12:04)
--- NOTE | 2018-10-16 13:07 | Internal Med Progress Note ---
Hospitalist Progress Note - Encounter Date of Encounter: 10/16/18 Time of Encounter: 09:35 - Subjective Interval History: Patient continues to have pain over her right hand. Fairly controlled when she receives her pain medications. Patient also reports being depressed recently. She was also feeling weak and tired. - Exam Vitals: Temp Pulse Resp BP Pulse Ox 98.9 F 82 18 104/77 98 10/16/18 10:40 10/16/18 10:40 10/16/18 10:40 10/16/18 10:40 10/16/18 10:40 Exam: General: Patient is alert, moderate distress, oriented x 3 ENT: Mucous membranes moist Respiratory: Good respiratory effort. Normal breath sounds. No wheezing or crackles. Cardiovascular: Regular rate and rhythm. s1 and s2 normal No clicks, rubs, gallops, or murmurs. No pedal edema Abdomen: Abdomen is soft, nontender. Bowel sounds are present Musculoskeletal: Right hand long and ring finger bandaged. Tender to palpation. Skin: warm, dry, intact. Neuro: Alert oriented x 3 normal cranial nerves, no focal deficits - Assessment and Plan (1) Osteomyelitis of finger of right hand Current Visit: Yes Status: Acute (2) Finger infection Current Visit: Yes Status: Acute (3) Mood disorder Current Visit: Yes Status: Acute (4) KRISTA (acute kidney injury) Current Visit: Yes Status: Acute DVT Prophylaxis: Continue subcutaneous heparin - Summary of Assessment and Plan Summary of Assessment and Plan: Acute osteomyelitis involving the right hand long finger: Wound culture growing MRSA. Patient did develop acute kidney injury while on vancomycin. Discussed with nephrology. Will stop this medication and switch to Zyvox. Stop Zosyn. Acute kidney injury: Likely due to vancomycin toxicity. Trough level was 74 yesterday. We will discontinue this medication. Aggressive hydration. Monitor vital signs closely. Monitor input and output closely. Nephrology consult in place. We will follow recommendations. Mood disorder: Patient appears depressed and psychiatric consult has been placed. We will follow recommendations. - Time Spent with Patient Total time spent is greater than 50% in coordination of care (as documented) at patient's floor/unit and/or counseling patient: Internal Medicine: Result - Labs CBC & Chem 7: 10/15/18 20:27 10/16/18 08:47 Labs: Short CBC 10/15/18 Range/Units 20:27 WBC 12.4 H (4.3-11.1) K/mcL Hgb 10.3 L (11.5-15.4) g/dL Hct 32.3 L (35.3-44.9) % Plt Count 230 (140-400) K/mcL Neutrophils # 8.9 (1.6-8.9) K/mcL BMP 10/16/18 08:47 Sodium 138 Potassium 4.3 Chloride 107 Carbon Dioxide 23 BUN 24 H Creatinine 5.06 H Glucose 90 Calcium 8.8 Urine 10/16/18 10/16/18 Range/Units 04:34 11:15 Urine Color Yellow Yellow (Yellow) Urine Clarity Cloudy A Cloudy A (Clear) Urine pH 6.0 6.0 (5.0-8.0) pH Units Ur Specific [place] 1.011 1.012 (1.010-1.025) Urine Protein 100 H 100 H (Neg-Trace) mg/dL Urine Glucose (UA) Normal Normal (Normal) mg/dL Consult Discharge Plan - Plan Referrals: NONE,PCP [Primary Care Provider] -
--- NOTE | 2018-10-16 14:09 | Consult Note ---
Date of Encounter: 10/16/18 Time of Encounter: 12:00 Assessment & Recommendation (1) Depression Current visit: Yes Status: Acute Qualifiers: Depression Type: dysthymia Qualified Code(s): F34.1 - Dysthymic disorder Code(s): F32.9 - Major depressive disorder, single episode, unspecified SNOMED Code(s): 89646232 (2) Anxiety Current visit: Yes Status: Acute History of Present Illness Patient: new to practice Requesting Physician: Philipp Vanessa MD Reason for consult: Depression and Anxiety History of present illness: Ms. Funes is a 23 year old female that I was requested to consult on regarding her depression and anxiety. When I approached the patient in her room and introduced myself, she greeted me appropriately. I asked her how she is, she told me "I've had a lot of stress recently and I know I've been depressed a long time". She explains to me that she is currently living in [place] and feels out of her comfort zone. She states that her got into some legal issues in [facility]. They routinely live in [facility] near her grandparents who help her out. Her has to do some community service and probation r equirements in [place]. She states they do not have a vehicle or any transportation from him to go from [place] to [place], so they moved to [place] temporarily for him to meet the requirements for his community service and probation and then they can move back to [place]. She states that are living on [address] [place] [address], which [place] "[place] [facility]". She is used [place] living [place] in [facility]; isolated and away from others. She tells me that people come to her door all the time and she sees people walking by her house. She hears loud noises and it makes her very nervous, feeling unsafe. She is fearful that something will happen to one of her 5 children living in town and wants to return to [place] as soon as possible. She states they will be able to move back to [place] the next couple months, once his community service is complete. She states that she will be much more comfortable when she is back in [place] and in her routine and environment. She states that she likes routine and taking care of her children, being home. When I ask her about signs and symptoms of depression, she endorses at times she feels hopeless and helpless. Moreso now living in [place]. She admits to having low energy and not wanting to do things. She has 5 children under the age of 8. She does not like to leave the house secondary to feeling anxious and unsafe in her current living situation. She feels it is dangerous. She acknowledges being very protective of her children, and living in a bad neighborhood in [place] is horrible for her worry. She said that she is very much out of her comfort zone and out of the routine of her everyday life when she is back in [place]. She states that she typically does not leave the house in [place] with 5 children to take care of. She states her typically runs errands. She also talks about being self conscience when she does leave the house, she feels people broke beater operator her and her life decisions for how she lives. It is out of the ordinary. She had her first child at 15 years old and has 4 more in the past 7 years. This is uncommon and she does not want to submit herself to other's judgment. She denies any auditory or visual hallucinations, ever feeling on top of the world. She denies going days and days without sleep, any mind reading or any paranoia. She denied being suicidal. She states that her children need her that there is no way that she would ever hurt herself. She states that has been periods in her life for she thought that "I'd just like to , but that doesn't mean I want to. I just have to deal with things and keep going." I talked to her about ever having sought mental health treatment in the past, as she is aware that she has depression and anxiety. She states that she has never taken the time to do that. She takes care of her and children, first, then her needs come second. She also told me that she does not feel that she could open up to someone and tell them things. She is a very private person. "I'm doing fine as is". I asked her about potentially starting on medications to treat depression and anxiety. She told me, at this point time, she was not interested. I asked her if she would be willing to talk to licensed social worker, get her set up with community support and community mental health? She said that she be willing to talk with them, but she did not know that she would follow up with appointment. Recommendation: 1. Unit licensed social worker to follow up with her and get increased health social work professor involvement if patient is willing while in [place] and get her enrolled in local mental health agency for follow up and support. 2. Encouraged possible use of an antidepressant. Patient is not currently breast feeding and has no plans to get again at this time. So there would be no / concerns. 3. Encouraged self care too, as well as caring for her family. 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 Recently moved to [place] temproraily for her and stress has increased. She is fearful of the city and does not have any social support. She misses her home and grandparents. She should be able to return to [place] in the next few months. 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 - Family History Mother Living Status: Still Living Hx Family Cardiac Disorders: Yes (HTN) Hx Family Endocrine Disorder: Yes (DM) Father History Unknown: Yes Medications & Allergies No Known Home Drugs 10/15/18 [History] Allergy/AdvReac Type Severity Reaction Status Date / Time vancomycin AdvReac See Verified 10/15/18 10:29 Comments Review of Systems Psychiatric: Reports: depression, anxiety, anhedonia, difficulty concentrating Psychiatry Exam - Constitutional Vitals: Temp Pulse Resp BP Pulse Ox 98.9 F 82 18 104/77 98 10/16/18 10:40 10/16/18 10:40 10/16/18 10:40 10/16/18 10:40 10/16/18 10:40 General appearance: obese Additional observations: Lying in a medical bed - Musculoskeletal Station: slouched Strength & Tone: normal for patient - Psychiatric Patient Orientation: Yes Person, Yes Time, Yes Place, Yes Circumstance Level of alertness: Alert Behavior: anxious, tearful (at times) Psychomotor activity: Agitated (mildly) Eye Contact: Minimal Contact Mood Description: Depressed, Anxious Affect description: tearful Speech Volume: Normal Speech pattern: normal rate, normal rhythm, normal tone, fluent Language & Vocabulary: consistent with education Thought Process: Linear Thought Content: Yes Intact Attention Span Ability: Capable of Focused Attention Memory Description: Grossly Intact Patient Reliability: Reliable Historian Fund of knowledge: Yes below average Intelligence Estimate: Below Average Judgment: Fair Insight: Partial Results - Labs Labs: Laboratory Last Values WBC 12.4 K/mcL (4.3-11.1) H 10/15/18 20: RBC 3.90 M/mcL (3.82-4.97) 10/15/18 20:27 Hgb 10.3 g/dL (11.5-15.4) L 10/15/18 20: Hct 32.3 % (35.3-44.9) L 10/15/18 20:27 MCV 82.8 fL (83.0-100.0) L 10/15/18 20:27 MCH 26.4 pg (28.0-33.3) L 10/15/18 20:27 MCHC 31.9 g/dL (31.6-35.5) 10/15/18 20:27 RDW 15.0 % (11.5-14.5) H 10/15/18 20:27 Plt Count 230 K/mcL (140-400) 10/15/18 20: MPV 10.8 fL (9.4-12.4) 10/15/18 20: Immature Gran % 0.4 % (0-4) 10/15/18 20: Seg Neutrophils % 71.6 % 10/15/18 20: 13.1 % 10/15/18 20: 9.7 % 10/15/18 20: 4.7 % 10/15/18 20:27 0.5 % 10/15/18 20: 8.9 K/mcL (1.6-8.9) 10/15/18 20: 1.6 K/mcL (0.6-4.6) 10/15/18 20:27 1.2 K/mcL (0.0-1.3) 10/15/18 20:27 0.6 K/mcL (0.0-0.6) 10/15/18 20:27 0.1 K/mcL (0.0-0.2) 10/15/18 20:27 ESR 89 mm/hr (0-15) H 10/14/18 03:00 Sodium 138 mEq/L (136-145) 10/16/18 08:47 Potassium 4.3 mEq/L (3.5-5.1) 10/16/18 08:47 Chloride 107 mEq/L (98-107) 10/16/18 08:47 Carbon Dioxide 23 mEq/L (23-29) 10/16/18 08:47 BUN 24 mg/dL (6-20) H 10/16/18 08:47 5.06 mg/dL (0.60-1.20) H 10/16/18 08:47 Est GFR ( Amer) 13 (> 60) L 10/16/18 08:47 Est GFR (Non-Af Amer) 11 (> 60) L 10/16/18 08:47 5 (6-26) L 10/16/18 08:47 Glucose 90 mg/dL (70-105) 10/16/18 08:47 290 (280-300) 10/16/18 08:47 Lactic Acid 0.9 mmol/L (0.5-2.2) 10/14/18 03:00 Calcium 8.8 mg/dL (8.6-10.3) 10/16/18 08:47 56 mg/L (Less than 10) H 10/14/18 02:16 Serum , Qual Negative (Negative) 10/14/18 03:00 Yellow (Yellow) 10/16/18 11:15 Cloudy (Clear) A 10/16/18 11:15 6.0 pH Units (5.0-8.0) 10/16/18 11:15 Ur Specific [place] 1.012 (1.010-1.025) 10/16/18 11:15 100 mg/dL (Neg-Trace) H 10/16/18 11:15 Normal mg/dL (Normal) 10/16/18 11:15 Negative mg/dL (Negative) 10/16/18 11:15 Negative (Negative) 10/16/18 11:15 Negative (Negative) 10/16/18 11:15 Negative (Negative) 10/16/18 11:15 Normal mg/dL (Normal) 10/16/18 11:15 Ur Leukocyte Esterase Small (Negative) H 10/16/18 11:15 3-5 per hpf (0-3) H 10/16/18 11:15 15-30 per hpf (0-3) H 10/16/18 11:15 Ur Squamous Epith Cells Many per lpf (None-Few) H 10/16/18 11:15 None Seen per hpf (None-Few) 10/16/18 11:15 Hyaline Casts None Seen per lpf (None-Few) 10/16/18 11:15 Ur Culture Indicated? YES (NO) A 10/16/18 11:15 Vancomycin Trough 74 mcg/mL (5-10) H 10/15/18 22:52 Consult Discharge Plan - Plan Referrals: NONE,PCP [Primary Care Provider] -
[2018-10-16] MEDS: *HR* Heparin 5,000 UNIT/ML VIAL SQ SCH (17:19)
[2018-10-16 18:47] LABS: Calcium 8.4 mg/dL (8.6-10.3); Potassium 4.1 mEq/L (3.5-5.1)
--- NOTE | 2018-10-16 19:06 | Nephrology Consult Note ---
Date of Encounter: 10/16/18 Time of Encounter: 14:00 Assessment and Plan (1) KRISTA (acute kidney injury) Current Visit: Yes Status: Acute KRISTA in the setting of vancomycin nephrotoxicity and sepsis. Vancomycin currently on hold. Replaced with linezolid. On 150 mls/hr on NS IVF. - Will order urine Na and creatinine to test for FeNa. - Order Urine eosinophil lab. - Uroc acid levels. - Complement and ESTEBAN labs to look for autoimmune etiology. - Continue to trend renal function. - Continue to hold vancomycin. - Continue aggressive IVF. - Avoid nephrotoxins. - Renal dose medications. (2) Osteomyelitis of finger of right hand Current Visit: Yes Status: Acute History of Present Illness - Reason for Consult Consult date: 10/16/18 Acute Kidney Injury - History of Present Illness 23 YO F that presented on 10/14/18 for on infection of the 3rd digit of the R hand. Reported symptoms for 2 weeks prior to admission. Since admission patient had sepsis criteria with leukocytosis and tachycardia. X-ray denoted likely osteomyelitis. Was taken to the OR for Incision, drainage, irrigation, and debridement of the right long finger including skin, subcutaneous tissue, and bone. Started on vancomycin and zosyn. Wound culture was positive for MRSA. Patient did undergo an accidental overdose of vancomycin. Creatinine rise from 0.8 on admission to 5.06 today. Nephrology consulted for KRISTA. When seen today, patient denied any history of kidney disease. She denied any use of NSAIDs a elizabet. She denied any abdominal pain. Denied any nausea or vomiting. Admitted to numbness/tingling in the LE. Admitted to [facility]. Admitted to subjective fever. Denied any chest pain or SOB. Past Med Surg Social Fam HX - Past Medical History Medical history: no medical history Psychiatric history: anxiety, depression - Social History Smoking Status: Never smoker Alcohol use: none Drug use: none - Family History Mother Living Status: Still Living Hx Family Cardiac Disorders: Yes (HTN) Hx Family Endocrine Disorder: Yes (DM) Father History Unknown: Yes Medications and Allergies No Known Home Drugs 10/15/18 [History] Allergy/AdvReac Type Severity Reaction Status Date / Time vancomycin AdvReac See Verified 10/15/18 10:29 Comments Review of Systems Constitutional: fever(s), headache(s) Nose, mouth and throat: no dizziness Cardiovascular: no chest pain, no palpitations Respiratory: no cough, no dyspnea Gastrointestinal: no abdominal pain, no change in bowel habits Musculoskeletal: muscle weakness Integumentary: rash (Admitted to having rash behind ears yesterday when she was given vancomycin.) Neurological: headache(s), numbness (LE b/l), no dizziness, no focal weakness Psychiatric: anxiety, depression, panic attacks Exam - Vital Signs Vital signs: Initial Vital Signs Temp Pulse Resp BP Pulse Ox 98.9 F 137 20 139/90 99 10/14/18 01:59 10/14/18 01:59 10/14/18 01:59 10/14/18 01:59 10/14/18 01:59 Vital Signs - Last 8 Hours Temp Pulse Resp BP Pulse Ox 10/16/18 14:57 98.2 F 76 16 108/72 98 Intake and Output 10/16/18 10/16/18 10/16/18 07:59 15:59 23:59 Intake Total 100 / 200 100 / 200 Output Total 300 / 300 Balance -200 / -100 100 / -100 Intake: IV Fluids 100 / 200 100 / 200 Zosyn 3.375 GM In 0.9 % Sodium 100 / 200 100 / 200 Chloride (Mini-Bag +) 100 ML @ 25 mls/hr IVPB Q8H [facility] Rx#: [id number] Output: Urine 300 / 300 Other: # Voids 1 - General Appearance General appearance: appears started age, obese Neck: no JVD Respiratory: clear Cardiology: no murmurs, no rub, no edema, regular rate, regular rhythm, normal S1, normal S2 Gastrointestinal: normoactive bowel sounds, no tenderness, no guarding, no organomegaly, no masses Integumentary: no rash, warm and dry Neurologic: no focal deficit, alert and oriented x3 Additional Comments: DTR's +2/4 in LE. Sensations intact and symmetrical in LE b/l. Musculoskeletal: no deformities, no erythema, no cyanosis, no clubbing Psychiatric: depressed Results - Lab Results 10/15/18 20:27 10/16/18 18:17 Most recent lab results 10/16/18 10/16/18 08:47 18:17 Calcium 8.8 8.4 L Consult Discharge Plan - Plan Referrals: NONE,PCP [Primary Care Provider] -
[2018-10-16] MEDS: *HR* OxyCODONE/APAP 5/325 TABLET PO PRN (21:21)
[2018-10-17] MEDS: 0.9 % Sodium Chloride 1,000 ML IVC SCH ×3 (02:35→19:34)
[2018-10-17] MEDS: *HR* OxyCODONE/APAP 5/325 TABLET PO PRN ×2 (02:36→19:35)
[2018-10-17] MEDS: *HR* Heparin 5,000 UNIT/ML VIAL SQ SCH ×2 (06:25→17:21)
[2018-10-17 07:42] LABS: Protein/Creatinine Ratio,Urine 0.83 mg/mg (0.00-0.20); Sodium, Urine 26.7 mEq/L
--- NOTE | 2018-10-17 08:11 | Orthopedics Progress Note ---
Date of Encounter: 10/17/18 Time of Encounter: 08:08 - Assessment and Plan (1) Finger infection Current Visit: Yes Status: Acute Subjective Interval history: S: Expected pain of the right long finger Quite tearful and anxious No new injuries or complaints O: Afebrile on the vital signs are stable Dressing is changed Significant improvement in swelling and redness. The packing is pulled and the wound bed is healthy without any further purulence; beginning to granulate She can grossly flex and extend the digit with significant limitation due to pain inhibition Other digits are freely mobile, sensory, and well-perfused Cultures showing MRSA Bone biopsy pending A: Right long finger infection post I&D P: Follow up bone biopsy Continued wet to dry changes and allow for granulation of the wound bed. No plans for further operative debridement Improving nicely. Abx per ID;. Objective Vital signs: Vital Signs Temp Pulse Resp BP Pulse Ox 10/17/18 04:43 99.0 F 84 15 117/76 98 10/16/18 23:27 99.0 F 97 16 104/69 93 10/16/18 19:35 98.4 F 86 16 113/80 98 10/16/18 14:57 98.2 F 76 16 108/72 98 10/16/18 10:40 98.9 F 82 18 104/77 98 Intake and Output 10/16/18 10/17/18 10/17/18 23:59 07:59 15:59 Intake Total 1300 / 1500 1000 / 1000 Output Total 450 / 750 Balance 850 / 750 1000 / 1000 Intake: IV Fluids 1300 / 1500 1000 / 1000 0.9 % Sodium Chloride 1,000 ML 1000 / 1000 1000 / 1000 @ 150 mls/hr IVC .Q6H40M [facility] Rx #:[id number] Zyvox Premix 600mg/300mL 600 mg 300 / 300 In 300 ml @ 150 mls/hr IVPB Q12HR [facility] Rx#:[id number] Output: Urine 450 / 750 Other: # Voids 1 Weight 136 kg Patient Weight 10/17/18 23:59 Weight 136 kg - Labs CBC & BMP: 10/15/18 20:27 10/16/18 18:17 Labs: Abnormal lab results WBC 12.4 K/mcL (4.3-11.1) H 10/15/18 20:27 Hgb 10.3 g/dL (11.5-15.4) L 10/15/18 20:27 Hct 32.3 % (35.3-44.9) L 10/15/18 20:27 MCV 82.8 fL (83.0-100.0) L 10/15/18 20:27 MCH 26.4 pg (28.0-33.3) L 10/15/18 20:27 RDW 15.0 % (11.5-14.5) H 10/15/18 20:27 10.3 K/mcL (1.6-8.9) H 10/14/18 02:15 ESR 89 mm/hr (0-15) H 10/14/18 03:00 Chloride 108 mEq/L (98-107) H 10/16/18 18:17 Carbon Dioxide 19 mEq/L (23-29) L 10/16/18 18:17 BUN 25 mg/dL (6-20) H 10/16/18 18:17 5.14 mg/dL (0.60-1.20) H 10/16/18 18:17 Est GFR ( Amer) 13 (> 60) L 10/16/18 18:17 Est GFR (Non-Af Amer) 10 (> 60) L 10/16/18 18:17 5 (6-26) L 10/16/18 18:17 Glucose 119 mg/dL (70-105) H 10/16/18 18:17 Calcium 8.4 mg/dL (8.6-10.3) L 10/16/18 18:17 56 mg/L (Less than 10) H 10/14/18 02:16 Cloudy (Clear) A 10/16/18 11:15 100 mg/dL (Neg-Trace) H 10/16/18 11:15 Ur Leukocyte Esterase Small (Negative) H 10/16/18 11:15 3-5 per hpf (0-3) H 10/16/18 11:15 15-30 per hpf (0-3) H 10/16/18 11:15 Ur Squamous Epith Cells Many per lpf (None-Few) H 10/16/18 11:15 Ur Culture Indicated? YES (NO) A 10/16/18 11:15 Microalb/Creat Ratio 267 mcg/mg (Less than 30) H 10/17/18 07:00 Protein/Creatinin Ratio 0.83 mg/mg (0.00-0.20) H 10/17/18 07:00 47 mg/dL (1-14) H 10/17/18 07:00 Vancomycin Trough 74 mcg/mL (5-10) H 10/15/18 22:52 Consult Discharge Plan - Plan Referrals: NONE,PCP [Primary Care Provider] -
[2018-10-17] MEDS: *HR* OxyCODONE Immed Rel 5 MG TABLET PO PRN ×2 (08:50→23:48)
[2018-10-17] MEDS: hydrOXYzine pamoate 25 MG CAPSULE PO PRN (08:51)
[2018-10-17] MEDS ORDERED: clonazePAM 0.5 MG TABLET PO PRN (09:09)
--- NOTE | 2018-10-17 12:20 | Infectious Disease Progress No ---
ID Progress Note Date of Encounter: 10/17/18 Time of Encounter: 10:25 - Subjective Subjective: Patient seen and examined. Overnight events noted. Psych notes reviewed. Patient non-compliant with care plan and has been refusing labs and has been exhibiting some paranoid behaviors. Patient tearful during exam and states she feels overwhelmed. She complains of pain at the surgical site. Denies fevers, chills, rigors. Denies chest pain, shortness of breath, or cough. Reports nausea and poor appetite, but denies vomiting, diarrhea, or constipation. She states her last BM was Sunday, which is normal for her. She states her appetite is not very good because she is very anxious. Denies oral thrush or skin rashes. She is agreeable to undergo midline placement in order to have access for lab draws and long-term IV antibiotics. She would like to wait until her gets here. I discussed this with Dr. Coburn who is okay to proceed with midline in light of the patient's KRISTA. - Objective CBC & Chem 7: 10/18/18 03:00 10/18/18 03:00 - Exam Vitals: Temp Pulse Resp BP Pulse Ox 99.0 F 84 15 117/76 98 10/17/18 04:43 10/17/18 04:43 10/17/18 04:43 10/17/18 04:43 10/17/18 04:43 Exam: Head: Atraumatic, normal inspection, normocephalic. Eye: EOMI, PERRLA, no scleral icterus noted. ENT: Mucous membranes moist. No odontogenic infection noted. Neck: Normal inspection, no meningismus. Respiratory: Clear to auscultation. No rales, respiratory distress, rhonchi, or wheezes noted. Cardiovascular: Regular rate and rhythm, S1 and S2 audible. No murmurs, rubs, or gallops. GI: Soft, obese, normal bowel sounds. Extremities: No joint swelling, pedal edema, or tenderness noted. Right hand dressing clean, dry, and intact. Back: Normal inspection. No vertebral tenderness noted. Neurological: Alert, oriented 3, no focal deficits. Psychiatric: flat affect, anxious, tearful. Skin: Dry, intact, warm. Normal color. No rashes. - Assessment and Plan (1) Osteomyelitis of finger of right hand Current Visit: Yes Status: Acute Location: Right hand long finger. Etiology: Unclear. Causative organism: MRSA. X-ray showed findings consistent with early osteomyelitis. Ortho consulted.. Status post incision, drainage, irrigation, and debridement of the right long finger including skin, subcutaneous tissue, and bone. Intraoperative subcutaneous tissue cultures positive for MRSA. Bone pathology is pending. Discussed with Dr. Gonzalez who has a high index of suspicion that this is a true osteomyelitis. Currently on Zyvox. SNOMED Code(s): 21913888 (2) KRISTA (acute kidney injury) Current Visit: Yes Status: Acute Likely secondary to vancomycin toxicity. Serum creatinine 5 yesterday. Recommend strict I's and O's. Hold Vancomycin, but continue to check levels. Will likely need to switch to other agent once levels are subtherapeutic. Dose-adjust medications and avoid additional nephrotoxins. Nephrology consulted and following. SNOMED Code(s): 68284980, 76060569 (3) Accidental vancomycin overdose Current Visit: Yes Status: Acute Vanc trough 10/15/18 74. Etiology: Unclear. Discussed with Briana Pharm.D. who is going to look into it. Vancomycin currently on hold. Patient refusing lab draws and unable to monitor renal function or levels. Qualifiers: Encounter type: initial encounter Qualified Code(s): T36.8X1A - Poisoning by other systemic antibiotics, accidental (unintentional), initial encounter SNOMED Code(s): 034934411 (4) Anxiety Current Visit: Yes Status: Acute Currently on oral Vistaril which the patient states really is not helping. Psychiatry consulted. Patient initially unwilling to take medications, but is now agreeable. SNOMED Code(s): 98498352 (5) Morbid obesity Current Visit: Yes Status: Acute SNOMED Code(s): 691455429 - Recommendations Recommendations: Await blood cultures to finalize. Wound care and activity per the ortho team. KRISTA management per nephrology. Strict I's and O's. Discontinue Zyvox. The patient will be therapeutic on her vanc for a few days so she will not need additional antibiotics until her vanc levels are subtherapeutic. Additionally, she will likely need 6 weeks of IV antibiotics and Zyvox has a duration limit of 14 days due to its bone marrow suppression side effects. It will also interact with SSRIs if the patient becomes amendable to taking an anti-depressant as recommended by the psych team. Hold vancomycin, but continued to trend levels. We will likely need to switch to a alternative agent once levels are subtherapeutic, likely daptomycin. Duration of treatment depends on the clinical picture, likely 6 weeks of IV antibiotics. Monitor renal function closely and dose adjust medications. web services architect to assist with discharge planning. Avoid insertion of long-term IV access until final discharge plans are made. Consult Discharge Plan - Plan Referrals: NONE,PCP [Primary Care Provider] - - Attending Attestation I have personally performed a face to face evaluation on this patient. I have reviewed and agree with the care plan. History and Exam by me shows: Assessment and plan: Abscess of the right hand with MRSA Vancomycin toxicity Acute kidney injury Anxiety Recommendations Avoid nephrotoxic medication Hold and all antibiotics until vancomycin level is around 15 and then we will probably start the patient on daptomycin of her kidney improves Duration of treatment probably 2-4 weeks, might be able switched to oral antibiotics eventually Nephrology consult
[2018-10-17] MEDS ORDERED: Lidocaine -MPF 1% 5 ML AMPUL INFILT ONE (13:30)
--- NOTE | 2018-10-17 14:11 | Internal Med Progress Note ---
Hospitalist Progress Note - Encounter Date of Encounter: 10/17/18 Time of Encounter: 14:37 - Subjective Interval History: Evaluated patient earlier today and again a little while ago. Patient has had multiple episodes of increased anxiety and has been emotionally no bile throughout the day. She is concerned about her kids and is worried about something happening to him while she is here. Denies that they are at any risk for harm but she continues to have her irrational fear that something bad is going to happen to to them. She complains of aches and pains all over. Her increased pain medication regimen reportedly did not help her much. - Exam Vitals: Temp Pulse Resp BP Pulse Ox 98.2 F 80 18 112/79 99 10/17/18 12:16 10/17/18 12:16 10/17/18 12:16 10/17/18 12:16 10/17/18 12:16 Exam: General: Patient is alert, moderate distress, oriented x 3 ENT: Mucous membranes moist Respiratory: Good respiratory effort. Normal breath sounds. No wheezing or c rackles. Cardiovascular: Regular rate and rhythm. s1 and s2 normal No clicks, rubs, gallops, or murmurs. No pedal edema Abdomen: Abdomen is soft, nontender. Bowel sounds are present Musculoskeletal: Spontaneously moving all extremities; right hand fingers are bandaged. Skin: warm, dry, intact. Psych: Very anxious and emotional. crying multiple times. No flight of thoughts and ideas. Neuro: Alert oriented x 3 normal cranial nerves, no focal deficits - Assessment and Plan (1) Osteomyelitis of finger of right hand Current Visit: Yes Status: Acute (2) Finger infection Current Visit: Yes Status: Acute (3) Mood disorder Current Visit: Yes Status: Acute (4) KRISTA (acute kidney injury) Current Visit: Yes Status: Acute DVT Prophylaxis: Continue subcutaneous heparin - Summary of Assessment and Plan Summary of Assessment and Plan: Acute osteomyelitis involving the right hand long finger: Infectious disease following. Vancomycin stopped due to adverse reaction and acute kidney injury. Continue to check vancomycin trough levels when able. Eventually plan is to transition her to daptomycin. PICC line ordered. Acute kidney injury: Patient has refused labs at this time due to multiple lab draws. Again talked to her about need for checking labs to treat her appropriately. Patient willing to have labs drawn after PICC line placed. Major depression and anxiety disorder: Psychiatric consult appreciated. Place patient on Zoloft. Also have her on low-dose clonazepam to help with symptoms of acute anxiety. Patient psychiatric situation is not stabilized at this time. She continues to harbor irrational fear of harm to her kids. cooler worker consult in place. Moderate risk for complications. - Time Spent with Patient Total time spent is greater than 50% in coordination of care (as documented) at patient's floor/unit and/or counseling patient: Internal Medicine: Result - Labs CBC & Chem 7: 10/15/18 20:27 10/16/18 18:17 Labs: BMP 10/16/18 18:17 Sodium 139 Potassium 4.1 Chloride 108 H Carbon Dioxide 19 L BUN 25 H Creatinine 5.14 H Glucose 119 H Calcium 8.4 L Consult Discharge Plan - Plan Referrals: NONE,PCP [Primary Care Provider] -
[2018-10-17] MEDS ORDERED: *HR* LORazepam 2 MG/ML VIAL IVP ONE ×2 (14:24→15:57)
[2018-10-17 17:18] LABS: Calcium 8.4 mg/dL (8.6-10.3); Potassium 3.7 mEq/L (3.5-5.1); Uric Acid 7.5 mg/dL (2.3-7.6)
[2018-10-17 17:20] LABS: Complement C3 154 mg/dL (87-200)
--- NOTE | 2018-10-17 20:42 | Nephrology Progress Note ---
Date of Encounter: 10/17/18 Time of Encounter: 16:00 - Assessment and Plan (1) KRISTA (acute kidney injury) Current Visit: Yes Status: Acute KRISTA in the setting of vancomycin nephrotoxicity and sepsis. Vancomycin currently on hold. Replaced with linezolid. On 150 mls/hr on NS IVF. FeNa of 1.9% indicating an intrinsic pathology or combination or intrinsic and pre-renal. Drug-induced ATN or AIN possibe however more likely ATN since urine eosinophil was negative and no urine WBC casts. Creatinine Kinase WNL. Rhabdo unlikely. - Continue to hold vancomycin. - Renal u/s pending. - Continue with aggressive IVF. - Avoid nephrotoxins. - Avoid Renal dose medications. (2) Osteomyelitis of finger of right hand Current Visit: Yes Status: Acute Subjective Interval history: When seen today, patient was in emotional distress. She was crying and exhibiting paranoid behavior. She was refusing to give blood samples to staff mundo couch in the morning. By the time I was there, they were able to put a line in and get a sample. I was told by the nurse that she was complaining of chest pain early on along with SOB. When I had seen her, she denied both symptoms. She admitted to some nausea but denied any vomiting. Admitted to mild diffuse abdominal discomfort. Able to produce urine. Denied any dysuria. Denied any gross hematuria. Objective - Vital Signs Vital signs: Vital Signs Temp Pulse Resp BP Pulse Ox 10/17/18 19:12 100.3 F H 84 15 131/82 97 10/17/18 12:16 98.2 F 80 18 112/79 99 10/17/18 04:43 99.0 F 84 15 117/76 98 10/16/18 23:27 99.0 F 97 16 104/69 93 Intake and Output 10/17/18 10/17/18 10/17/18 07:59 15:59 23:59 Intake Total 1000 / 3000 1000 / 3000 1000 / 3000 Output Total 500 / 500 Balance 1000 / 2500 500 / 2500 1000 / 2500 Intake: IV Fluids 1000 / 3000 1000 / 3000 1000 / 3000 0.9 % Sodium Chloride 1,000 ML 1000 / 3000 1000 / 3000 1000 / 3000 @ 150 mls/hr IVC .Q6H40M [facility] Rx #:[id number] Output: Urine 500 / 500 Other: Weight 136 kg Patient Weight 10/17/18 23:59 Weight 136 kg - General Appearance General appearance: Present: appears started age, obese Neck: Present: no JVD Respiratory: Present: clear Cardiology: Present: no murmurs, no rub, no gallops, no edema, regular rate, regular rhythm, normal S1, normal S2 Gastrointestinal: Present: normoactive bowel sounds, tenderness (Subjective mild diffuse tednerness), no guarding, no organomegaly, no masses, obese Integumentary: Present: no rash, warm and dry Neurologic: Present: no focal deficit, alert and oriented x3 Musculoskeletal: Present: no erythema, no cyanosis, no clubbing Additional Comments: R hand bandaged and intact. No signs of surrounding erythema, bleeding, pus, or drainage. Psychiatric: Present: agitated, depressed, paranoid ideation - Lab 10/15/18 20:27 10/17/18 04:00 Most recent lab results 10/17/18 04:00 Calcium 8.4 L Consult Discharge Plan - Plan Referrals: NONE,PCP [Primary Care Provider] -
[2018-10-17 21:55] LABS: Basophils % 0.4 %; Eosinophils # 0.1 K/mcL (0.0-0.6); Hematocrit 26.7 % (35.3-44.9); Hemoglobin 8.5 g/dL (11.5-15.4); Immature Granulocytes % 0.4 % (0-4); Lymphocytes # 1.1 K/mcL (0.6-4.6); Lymphocytes % 10.3 %; Mean Corpuscular HGB Conc 31.8 g/dL (31.6-35.5); Mean Corpuscular Hemoglobin 26.2 pg (28.0-33.3); Mean Corpuscular Volume 82.2 fL (83.0-100.0); Mean Platelet Volume 10.5 fL (9.4-12.4); Monocytes # 1.1 K/mcL (0.0-1.3); Monocytes % 10.7 %; Neutrophils # 8.2 K/mcL (1.6-8.9); Platelet Count 243 K/mcL (140-400); Red Blood Count 3.25 M/mcL (3.82-4.97); Red Cell Distribution Width 14.7 % (11.5-14.5); Segmented Neutrophils % 77.2 %
[2018-10-18] MEDS: 0.9 % Sodium Chloride 1,000 ML IVC SCH (03:34)
[2018-10-18 04:38] LABS: Basophils # 0.1 K/mcL (0.0-0.2); Basophils % 0.4 %; Eosinophils # 0.1 K/mcL (0.0-0.6); Eosinophils % 1.3 %; Hematocrit 27.1 % (35.3-44.9); Hemoglobin 8.5 g/dL (11.5-15.4); Immature Granulocytes % 0.4 % (0-4); Lymphocytes # 1.3 K/mcL (0.6-4.6); Lymphocytes % 11.5 %; Mean Corpuscular HGB Conc 31.4 g/dL (31.6-35.5); Mean Corpuscular Hemoglobin 25.9 pg (28.0-33.3); Mean Corpuscular Volume 82.6 fL (83.0-100.0); Monocytes # 1.4 K/mcL (0.0-1.3); Monocytes % 12.8 %; Neutrophils # 8.2 K/mcL (1.6-8.9); Platelet Count 232 K/mcL (140-400); Red Blood Count 3.28 M/mcL (3.82-4.97); Red Cell Distribution Width 14.7 % (11.5-14.5); Segmented Neutrophils % 73.6 %
[2018-10-18 04:57] LABS: Calcium 8.1 mg/dL (8.6-10.3); Potassium 3.4 mEq/L (3.5-5.1)
[2018-10-18] MEDS: *HR* Heparin 5,000 UNIT/ML VIAL SQ SCH (05:56)
--- NOTE | 2018-10-18 07:31 | Orthopedics Progress Note ---
Date of Encounter: 10/18/18 Time of Encounter: 07:29 - Assessment and Plan (1) Finger infection Current Visit: Yes Status: Acute Subjective Interval history: S: Expected pain of the right long finger; though she says pain is improving Less anxious and tearful this AM O: Afebrile on the vital signs are stable Dressing is changed Significant improvement in swelling and redness. The packing is pulled and the wound bed is healthy without any further purulence; beginning to granulate She can grossly flex and extend the digit with significant limitation due to pain inhibition Other digits are freely mobile, sensory, and well-perfused Cultures showing MRSA Bone biopsy notes suppurative inflammation A: Right long finger infection post I&D Acute kidney injury due to Vancomycin toxicity P: Continued wet to dry changes and allow for granulation of the wound bed. No plans for further operative debridement Improving nicely. Abx per ID;. Objective Vital signs: Vital Signs Temp Pulse Resp BP Pulse Ox 10/18/18 00:21 99.4 F 10/17/18 19:12 100.3 F H 84 15 131/82 97 10/17/18 12:16 98.2 F 80 18 112/79 99 Intake and Output 10/17/18 10/17/18 10/18/18 15:59 23:59 07:59 Intake Total 1000 / 3000 1000 / 3000 1000 / 1000 Output Total 500 / 500 500 / 500 Balance 500 / 2500 1000 / 2500 500 / 500 Intake: IV Fluids 1000 / 3000 1000 / 3000 1000 / 1000 0.9 % Sodium Chloride 1,000 ML 1000 / 3000 1000 / 3000 1000 / 1000 @ 150 mls/hr IVC .Q6H40M [facility] Rx #:[id number] Output: Urine 500 / 500 500 / 500 - Labs CBC & BMP: 10/18/18 03:00 10/18/18 03:00 Labs: Abnormal lab results WBC 11.2 K/mcL (4.3-11.1) H 10/18/18 03:00 RBC 3.28 M/mcL (3.82-4.97) L 10/18/18 03:00 Hgb 8.5 g/dL (11.5-15.4) L 10/18/18 03:00 Hct 27.1 % (35.3-44.9) L 10/18/18 03:00 MCV 82.6 fL (83.0-100.0) L 10/18/18 03:00 MCH 25.9 pg (28.0-33.3) L 10/18/18 03:00 MCHC 31.4 g/dL (31.6-35.5) L 10/18/18 03:00 RDW 14.7 % (11.5-14.5) H 10/18/18 03:00 10.3 K/mcL (1.6-8.9) H 10/14/18 02:15 1.4 K/mcL (0.0-1.3) H 10/18/18 03:00 ESR 90 mm/hr (0-15) H 10/17/18 08:39 Potassium 3.4 mEq/L (3.5-5.1) L 10/18/18 03:00 Chloride 112 mEq/L (98-107) H 10/18/18 03:00 Carbon Dioxide 20 mEq/L (23-29) L 10/18/18 03:00 BUN 24 mg/dL (6-20) H 10/18/18 03:00 5.88 mg/dL (0.60-1.20) H 10/18/18 03:00 Est GFR ( Amer) 11 (> 60) L 10/18/18 03:00 Est GFR (Non-Af Amer) 9 (> 60) L 10/18/18 03:00 4 (6-26) L 10/18/18 03:00 Glucose 119 mg/dL (70-105) H 10/16/18 18:17 Calcium 8.1 mg/dL (8.6-10.3) L 10/18/18 03:00 98 mg/L (Less than 10) H 10/17/18 08:39 Cloudy (Clear) A 10/16/18 11:15 100 mg/dL (Neg-Trace) H 10/16/18 11:15 Ur Leukocyte Esterase Small (Negative) H 10/16/18 11:15 3-5 per hpf (0-3) H 10/16/18 11:15 15-30 per hpf (0-3) H 10/16/18 11:15 Ur Squamous Epith Cells Many per lpf (None-Few) H 10/16/18 11:15 Ur Culture Indicated? YES (NO) A 10/16/18 11:15 Microalb/Creat Ratio 267 mcg/mg (Less than 30) H 10/17/18 07:00 Protein/Creatinin Ratio 0.83 mg/mg (0.00-0.20) H 10/17/18 07:00 47 mg/dL (1-14) H 10/17/18 07:00 Vancomycin Trough 49 mcg/mL (5-10) H 10/17/18 04:00 Consult Discharge Plan - Plan Referrals: NONE,PCP [Primary Care Provider] -
[2018-10-18 08:03] LABS: Hepatitis B Surface Antibody 23.31 mIU/mL
[2018-10-18 08:14] LABS: Hepatitis B Surface Antigen Nonreactive (Nonreactive)
[2018-10-18] MEDS ORDERED: Ringers Solution, Lactated 1,000 ML IVC SCH (08:30)
[2018-10-18] MEDS: *HR* OxyCODONE Immed Rel 5 MG TABLET PO PRN (08:38)
[2018-10-18] MEDS ORDERED: Ondansetron 4 MG/2 ML VIAL IVP PRN (10:38)
--- NOTE | 2018-10-18 12:04 | Infectious Disease Progress No ---
ID Progress Note Date of Encounter: 10/18/18 Time of Encounter: 10:35 - Subjective Subjective: Patient seen and examined. Overnight events noted. Psych notes reviewed. Per nursing, patient complaining of diffuse, generalized pain all over and at her IV line site. VAT evaluated the patient's line and it does not appear infected and UTS evaluation reveals that the line is in the vessel without surrounding nerves or other explanation for the patient to be having that much pain. During my exam, the patient is lying at the end of the bed with her daughter and sister in the room. She keeps her eyes closed during the entire exam. Denies fevers, chills, rigors. Denies chest pain, shortness of breath, or cough. Reports nausea and poor appetite and had vomiting this morning. Denies diarrhea, or constipation. She states she had one loose stool yesterday. She states her appetite is not very good because she is very anxious and she has been declining her medications because of the nausea. Denies oral thrush or skin rashes. - Objective CBC & Chem 7: 10/18/18 03:00 10/18/18 03:00 - Line Documentation Line Documentation: Midline (LUE, without redness, warmth, erythema, or drainage. Non-tender on exam.) - Exam Vitals: Temp Pulse Resp BP Pulse Ox 98.8 F 80 16 137/85 100 10/18/18 07:36 10/18/18 07:36 10/18/18 07:36 10/18/18 07:36 10/18/18 07:36 Exam: Head: Atraumatic, normal inspection, normocephalic. Eye: EOMI, PERRLA, no scleral icterus noted. ENT: Mucous membranes moist. No odontogenic infection noted. Neck: Normal inspection, no meningismus. Respiratory: Clear to auscultation. No rales, respiratory distress, rhonchi, or wheezes noted. Cardiovascular: Regular rate and rhythm, S1 and S2 audible. No murmurs, rubs, or gallops. GI: Soft, obese, normal bowel sounds. Extremities: No joint swelling, pedal edema, or tenderness noted. Right hand dressing clean, dry, and intact. Back: Normal inspection. No vertebral tenderness noted. Neurological: Alert, oriented 3, no focal deficits. Psychiatric: flat affect, anxious, tearful. Skin: Dry, intact, warm. Normal color. No rashes. - Assessment and Plan (1) Osteomyelitis of finger of right hand Status: Acute Location: Right hand long finger. Etiology: Unclear. Causative organism: MRSA. X-ray showed findings consistent with early osteomyelitis. Ortho consulted.. Status post incision, drainage, irrigation, and debridement of the right long finger including skin, subcutaneous tissue, and bone. Intraoperative subcutaneous tissue cultures positive for MRSA. Discussed with Dr. Gonzalez who has a high index of suspicion that this is a true osteomyelitis. Pathology negative for OM. Not currently on any antibiotics, but Vanc trough 10/17/18 was 49, so likely still therapeutic. SNOMED Code(s): 55604561 (2) KRISTA (acute kidney injury) Status: Acute Likely secondary to vancomycin toxicity. Serum creatinine 5.8 this morning. Recommend strict I's and O's. Hold Vancomycin, but continue to check levels. Will likely need to switch to other agent once levels are subtherapeutic. Dose-adjust medications and avoid additional nephrotoxins. Nephrology consulted and following. SNOMED Code(s): 84220850, 43016097 (3) Accidental vancomycin overdose Status: Acute Vanc trough 10/15/18 74. Etiology: Unclear. Discussed with Briana, Pharm.D. who is going to look into it. Vancomycin currently on hold. Qualifiers: Encounter type: initial encounter Qualified Code(s): T36.8X1A - Poisoning by other systemic antibiotics, accidental (unintentional), initial encounter SNOMED Code(s): 444030588 (4) Anxiety Status: Acute Currently on oral Vistaril which the patient states really is not helping. Psychiatry consulted. Recommend psych to re-evaluate. SNOMED Code(s): 79334460 (5) Morbid obesity Status: Acute SNOMED Code(s): 534954007 - Recommendations Recommendations: Await blood cultures to finalize. Wound care and activity per the ortho team. KRISTA management per the nephrology team. Strict I's and O's. Consider psychiatry to re-evaluate. Hold vancomycin, but continued to trend levels. The patient will be therapeutic on her vanc for a few days so she will not need additional antibiotics until her vanc levels are subtherapeutic. Additionally, she will likely need 6 weeks of IV antibiotics and Zyvox has a duration limit of 14 days due to its bone marrow suppression side effects. It will also interact with SSRIs if the patient becomes amendable to taking an anti-depressant as recommended by the psych team. Hold vancomycin, but continued to trend levels. We will likely need to switch to a alternative agent once levels are subtherapeutic, likely daptomycin. Duration of treatment depends on the clinical picture, likely 6 weeks of IV antibiotics. Will discuss path report with the ortho-hand team. Monitor renal function closely and dose adjust medications. rn patient services to assist with discharge planning. Consult Discharge Plan - Plan Instructions: Methicillin Resistant Staphylococcus Aureus (GEN), Anxiety (DC) Referrals: NONE,PCP [Primary Care Provider] - - Attending Attestation I have personally performed a face to face evaluation on this patient. I have reviewed and agree with the care plan. History and Exam by me shows: Assessment and plan: Abscess of the right hand with MRSA Vancomycin toxicity Acute kidney injury Anxiety Recommendations Avoid nephrotoxic medication Hold and all antibiotics until vancomycin level is around 15 and then we will probably start the patient on daptomycin of her kidney improves Duration of treatment probably 2-4 weeks, might be able switched to oral antibiotics eventually Nephrology consult appreciated patient being transferred to [facility]
[2018-10-18 12:16] VITALS: BP 126/84
[2018-10-18] MEDS ORDERED: 0.9 % Sodium Chloride 250 ML IVC PRN (12:40)
[2018-10-18] MEDS ORDERED: 0.9 % Sodium Chloride 1,000 ML PRIME SCH (12:45)
[2018-10-18] MEDS ORDERED: Heparin 1,000 UNITS/500 mL 500 ML ONE (13:32)
--- NOTE | 2018-10-18 13:55 | Nephrology Progress Note ---
Date of Encounter: 10/18/18 Time of Encounter: 08:50 - Assessment and Plan (1) KRISTA (acute kidney injury) Current Visit: Yes Status: Acute KRISTA in the setting of vancomycin nephrotoxicity and sepsis. Vancomycin currently on hold. Replaced with linezolid. On 125 mls/hr of lactated ringers. FeNa of 1.9% indicative of intrinsic pathology with possible pre-renal component. Patient's creatinine level has slightly increased from 5.65 to 5.88. Vanc trough has dropped from 74 to 49. Potassium level WNL. Mild acidosis. Given patient has been complaining of symptoms associated with uremia including nausea, vomiting, abdominal pain, we will proceed to with temp dialysis. - Start temp dialysis. - F/U with renal ultrasound to r/o obstruction. - Avoid nephrotoxins. - Renal diet. - Renal dose medications. (2) Osteomyelitis of finger of right hand Current Visit: Yes Status: Acute Subjective Interval history: When seen today, patient continued to be in emotional distress. She was crying and exhibiting paranoid behavior. She denied any chest pain or SOB. Admitted to some nausea and dry heaves. Admitted to generalized abdominal pain. Admits to producing urine. Denies any dysuria or hematuria. Objective - Vital Signs Vital signs: Vital Signs Temp Pulse Resp BP Pulse Ox 10/18/18 12:00 98.2 F 69 16 126/84 95 10/18/18 07:36 98.8 F 80 16 137/85 100 10/18/18 00:21 99.4 F 10/17/18 19:12 100.3 F H 84 15 131/82 97 Intake and Output 10/17/18 10/18/18 10/18/18 23:59 07:59 15:59 Intake Total 1000 / 3000 1000 / 1120 120 / 1120 Output Total 1000 / 1000 0 / 1000 Balance 1000 / 2500 0 / 120 120 / 120 Intake: IV Fluids 1000 / 3000 1000 / 1000 0.9 % Sodium Chloride 1,000 ML 1000 / 3000 1000 / 1000 @ 150 mls/hr IVC .Q6H40M [facility] Rx #:[id number] Oral 0 / 120 120 / 120 Output: Urine 1000 / 1000 0 / 1000 Other: Meal Breakfast Percent of Meal Consumed 0% - General Appearance General appearance: Present: appears started age, obese Neck: Present: no JVD Respiratory: Present: clear Cardiology: Present: no murmurs, no rub, no gallops, no edema, regular rate, regular rhythm, normal S1, normal S2 Gastrointestinal: Present: normoactive bowel sounds, tenderness (Mild subjective tenderness with deep palpation in all 4 quadrants. ), no guarding, no organomegaly, no masses Integumentary: Present: no rash, warm and dry Neurologic: Present: no focal deficit, alert and oriented x3, strength 5/5 Musculoskeletal: Present: no deformities, no erythema, no cyanosis, no clubbing Additional Comments: R hand bandaged and intact. No signs or erythema, pus, or drainage. Psychiatric: Present: depressed, paranoid ideation Additional Comments: Anxious appearing. Unable to make eye contact. - Lab 10/18/18 03:00 10/18/18 03:00 Most recent lab results 10/18/18 03:00 Calcium 8.1 L Consult Discharge Plan - Plan Referrals: NONE,PCP [Primary Care Provider] -
--- NOTE | 2018-10-18 15:45 | Discharge Summary ---
Orders not resulted at time of discharge: Pending orders 10/14/18 03:03 Culture,Blood [BC] Stat 10/14/18 04:55 AFB Culture, Tissue [TB] Routine AFB Smear [TB] Routine Culture,Anaerobic [RM] Routine Fungal Culture [MYC] Routine 10/16/18 18:24 ESTEBAN IgG CATHY rflx IFA Routine 10/18/18 11:42 Vancomycin,Random Routine 10/18/18 12:59 PT/INR [Prothrombin Time INR] [COAG] Stat 10/18/18 15:00 US retroperitoneal comp [US] Routine Date of Encounter: 10/18/18 Time of Encounter: 15:42 - Discharge Diagnosis (1) Osteomyelitis of finger of right hand Priority: Primary Status: Acute (2) Finger infection Priority: Secondary Status: Acute (3) Mood disorder Priority: Secondary Status: Acute (4) KRISTA (acute kidney injury) Priority: Secondary Status: Acute Hospital course: Ms. Funes is a 23 year old female Patient with no significant past medical history was hospitalized here with infection involving her right leg long finger. Initially developed as a pustule on the radial aspect of the distal long finger spontaneously drained but eventually got worse. She was suspected of having possible prior no acute abscess and flexor tenosynovitis. She underwent exploration with incision and drainage irrigation and debridement of right long finger infection on 10/14. Wound cultures are growing MRSA. She was treated with vancomycin. 48 hours after receiving vancomycin, her renal fu nction worsened. Creatinine bumped up to 5. It was previously normal (0.86). Vancomycin trough level was 74. Vancomycin was stopped and her renal function monitored. As it continued to worsen (CR 5.88) and patient began to develop uremic symptoms, nephrology recommended that she be dialyzed. Patient is not oliguric. Potassium is 3.4. At this time however, patient and family wish for her to be transferred to [facility] instead. I have called [facility] and they have kindly accepted the patient for transfer. Patient has not received any further antibiotics as her vancomycin levels remained supratherapeutic Discharge discussed with: patient, family, nurse, inside solar sales consultant - Time Spent with Patient Total time spent providing and/or coordinating discharge services: Time spent: Greater than 30 minutes (40 min) - Discharge Medications Prescriptions: No Action No Known Home Drugs 1 each .ROUTE AD each Home Medications: No Known Home Drugs 10/15/18 [History] Allergies/Adverse Reactions: Allergy/AdvReac Type Severity Reaction Status Date / Time vancomycin AdvReac See Verified 10/15/18 10:29 Comments Date of admission: 10/16/18 12:53 Primary care physician: PCP NONE Consults: 10/14/18 04:03 Consult to Orthopedic Surgery [CONS] Stat Consulting Provider: [facility] Reason for Consult: Cellulitis, tenosynovitis Call Completed: Yes 10/14/18 08:52 Consult to Irrigation Flume Layer [CONS] Routine Reason for SW Consult: Patient feels hopeless and has had thougts of killing herself 10/15/18 13:37 Consult to Infectious Diseases [CONS] Stat Consulting Provider: Infectious Disease [place] Reason for Consult: Presumptive MRSA, antibiotics Call Completed: Yes 10/15/18 13:58 Consult to Psychiatry [CONS] Routine Consulting Provider: Psychiatry [place] Reason consult: Medication recommendation Other reason and/or additional details: severe depression/anxiety Call Completed: No 10/16/18 13:09 Consult to Nephrology [CONS] Routine Consulting Provider: Kidney [facility]/MEERA/GAYATHRI/NORM Reason for Consult: Acute kidney injury Call Completed: Yes 10/17/18 13:30 Consult to Invasive Line Access Team [CONS] Routine Reason for Consult: Long-term IV access Line Type: Midline PICC line indications: nursing home Med/Antibiotic Time Notified: 13:31 Call Completed: Yes 10/18/18 12:39 Consult to Interventional Radiology [CONS] Routine Consulting Provider: Radiology Interventional [place] Reason for Consult: Please assist in placing a temporary HD catheter as she is now developing uremic symptoms. Thank you Call Completed: Yes 10/18/18 12:45 Consult to Dialysis [CONS] ONCE Discharging clinician: Philipp Vanessa Anticipated date of discharge: 10/18/18 - Constitutional Vitals: Temp Pulse Resp BP Pulse Ox 98.2 F 69 16 126/84 95 10/18/18 12:00 10/18/18 12:00 10/18/18 12:00 10/18/18 12:00 10/18/18 12:00 General appearance: Present: cooperative, A&O X 3 Exam: General: Patient is alert, mild distress, oriented x 3 ENT: Mucous membranes moist Respiratory: Good respiratory effort. Normal breath sounds. No wheezing or crackles. Cardiovascular: Regular rate and rhythm. s1 and s2 normal No clicks, rubs, gallops, or murmurs. No pedal edema Abdomen: Abdomen is soft, nontender. Bowel sounds are present Musculoskeletal: Spontaneously moving all extremities Skin: warm, dry, intact. Psych: Anxious, emotional and teary Neuro: Alert oriented x 3 normal cranial nerves, no focal deficits - Patient Status Disposition: Transfer Other Condition: Fair Functional capacity at discharge: independent ambulation Overall status at discharge: patient is not back to baseline - Discharge Instructions Instructions: Anxiety (DC) Follow Up With: NONE,PCP [Primary Care Provider] - - Diet and Activity Diet: advance to your usual diet
--- NOTE | 2018-10-18 21:08 | Electrocardiograph Report ---
[address] [place] [address] Test Date: 2018-10-17 Pat Name: Darshana Funes Department: 113 Room: 3A43 Gender: F Sand Filler: : 1995 Requested By: Philipp Vanessa Order Number: [id number] Reading MD: Jude Calhoun Measurements Intervals [place] Rate: 105 P: 25 NV: 152 QRS: 9 QRSD: 101 T: 20 QT: 314 QTc: 375 Interpretive Statements SINUS TACHYCARDIA ABNORMAL RHYTHM ECG Electronically Signed On 10-18-2018 21:06:08 EDT by Jude Calhoun
[2018-10-20 10:01] LABS: ANA IgG by ELISA NONE DETECTED (None Detected)
== END 2018-10-18 17:36 | disposition critical access hospital (66) | DRG 710 ==
LOC: EMEROOARM 01:53 → 3ANU 01:53 → SUATTDRO 03:42 → 3ANU 04:11
PROVIDERS: ADMIT Internal Medicine; ATTEND Internal Medicine